=== PATIENT | female | born 1970 ===

== ENCOUNTER 2017-02-02 03:12 | Inpatient (IN) | payer OTHER ==
[2017-02-02] MEDS ORDERED: Sodium Chloride 0.9% 1,000 ML IV STA ×3 (03:40→11:41)
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
[2017-02-02 04:10] LABS: BASO % 0.2 % (0.0-2.0); EOS # 0.1 K/uL (0.0-0.7); EOS % 0.4 % (0.0-4.0); HEMATOCRIT 36.6 % (34.0-47.0); LYMPH # 1.2 K/uL (1.0-4.3); LYMPH % 8.3 % (20.0-40.0); MEAN CELL VOLUME 85.7 fl (81.0-99.0); MEAN CORPUSCULAR HEMOGLOBIN 29.4 pg (27.0-31.0); MEAN CORPUSCULAR HGB CONC 34.3 g/dL (33.0-37.0); MEAN PLATELET VOLUME 8.6 fl (7.2-11.7); MONO # 0.9 K/uL (0.0-0.8); NEUT # 12.2 K/uL (1.8-7.0); NEUT % 85.1 % (50.0-75.0); PLATELET COUNT 195 K/uL (130-400); RED CELL DISTRIBUTION WIDTH 13.3 % (11.5-14.5); WHITE BLOOD COUNT 14.3 K/uL (4.8-10.8)
[2017-02-02 04:15] LABS: CHLORIDE 107 mmol/L (98-107); POTASSIUM 3.4 MMOL/L (3.6-5.0); SODIUM 138 mmol/l (132-148)
[2017-02-02 04:17] LABS: VENOUS BLOOD GAS BASE EXCESS -5.5 mmol/L (0.0-2.0); VENOUS BLOOD GAS MODE ROOM AIR; VENOUS BLOOD GAS PCO2 42 mmHg (40-60)
[2017-02-02 04:17] LABS: GFR AFRICAN-AMERICAN > 60
[2017-02-02 04:18] LABS: ALB/GLOB RATIO 1.1 (1.0-2.1); ALKALINE PHOSPHATASE 76 U/L (38-126); ALT/SGPT 32 U/L (9-52); AST/SGOT 24 U/L (14-36); BLOOD UREA NITROGEN 10 mg/dl (7-17); CALCIUM 9.5 mg/dL (8.4-10.2); CARBON DIOXIDE 22 mmol/L (22-30); GLUCOSE,RANDOM 112 mg/dL (65-105); LIPASE 147 U/L (23-300); TOTAL PROTEIN 7.6 G/DL (6.3-8.2)
[2017-02-02] MEDS ORDERED: Iohexol 240 (50 ml) PO ONE (04:40)
[2017-02-02] MEDS ORDERED: DiphenhydrAMINE 50 mg/ml Inj IVP STA (04:50)
[2017-02-02] MEDS ORDERED: Iohexol 240 (50 ml) ONE (04:53)
[2017-02-02 04:54] LABS: RBC URINE 1 /hpf (0-3); URINE BACTERIA RARE (<OCC); URINE BILIRUBIN NEGATIVE (NEGATIVE); URINE BLOOD NEGATIVE (NEGATIVE); URINE COLOR BLUE (YELLOW); URINE GLUCOSE (UA) NEG (Normal); URINE KETONE TRACE mg/dL (NEGATIVE); URINE LEUKOCYTE ESTERASE NEG Leu/uL (Negative); URINE PROTEIN NEGATIVE (NEGATIVE); WBC URINE 1 /hpf (0-5)
[2017-02-02] MEDS ORDERED: DiphenhydrAMINE 50 mg/ml Inj ONE (04:58)
--- NOTE | 2017-02-02 06:06 | ED PDOC ---
- Laboratory Results Result Diagrams: 02/02/17 04:06 02/02/17 04:06 - ECG O2 Sat by Pulse Oximetry: 100 (RA) Pulse Ox Interpretation: Normal Medical Decision Making Medical Decision Making: Time: 0600 Initial impression: Flu-Like Symptoms Initial plan: Patient signed out to me by Baldev Espinal PA-C. Pending CT Scan. 0700: Patient signed out to Dr. Toribio at this time. Pending CT Scan. Scribe Attestation: Documented by Alicia Bryant, acting as a scribe for Mk York MD. Scribe Attestation: All medical record entries made by the Scribe were at my direction and personally dictated by me. I have reviewed the chart and agree that the record accurately reflects my personal performance of the history, physical exam, medical decision making, and the department course for this patient. I have also personally directed, reviewed, and agree with the discharge instructions and disposition. Disposition - Clinical Impression Clinical Impression: Fever in adult, Abdominal pain - POA Present On Arrival: None - Disposition Disposition: Routine/Home Disposition Time: 04:40 Condition: FAIR
[2017-02-02 07:23] LABS: EOSINOPHIL 1 % (0-7); NEUTROPHIL 79 % (42-75); REACTIVE LYMPHOCYTES 2 % (0-0); TOTAL CELLS COUNTED 100
--- NOTE | 2017-02-02 09:27 | CT ---
PROCEDURE: CT abdomen and pelvis dated 02/02/2017 HISTORY: RLQ, epigastric pain, fever COMPARISON: Comparison made with CT scan abdomen and pelvis dated 08/17/2015. TECHNIQUE: Contiguous axial images of the abdomen and pelvis. Oral contrast was administered. No IV contrast given. 2 dimensional sagittal and coronal reformats generated. Radiation dose: Total exam DLP = 468.66 mGy-cm. This CT exam was performed using one or more of the following dose reduction techniques: Automated exposure control, adjustment of the mA and/or kV according to patient size, and/or use of iterative reconstruction technique. FINDINGS: LOWER THORAX: Patchy infiltrate changes are seen in the left lower lobe with atelectasis in the right lung base. . No evidence of effusion or basilar pneumothorax. Small hiatal hernia with slight wall thickening of the distal esophagus that could be due to protrusion of gastric mucosa. Possibility of esophagitis or other intrinsic/invasive wall lesion not excluded. Clinical correlation recommended to determine whether additional followup such is a endoscopy required. Heart size is mildly enlarged. No significant pericardial effusion. LIVER: The unenhanced liver exhibits normal size and attenuation pattern without mass collection or calcification. GALLBLADDER AND BILE DUCTS: Gallbladder is physiologically distended. No evidence of intraluminal gallbladder calculi. PANCREAS: The unenhanced pancreas appear grossly unremarkable without obvious mass collection or calcification. SPLEEN: Spleen exhibits normal size and attenuation pattern without mass collection or calcification. ADRENALS: No adrenal lesions seen. KIDNEYS AND URETERS: Kidneys demonstrate relatively symmetric size. No evidence of nephrolithiasis or hydronephrosis. No obvious renal mass or collection seen on this noncontrast study. BLADDER: Urinary bladder is physiologically distended. No evidence of intraluminal urinary bladder calculi. REPRODUCTIVE: Patient is status post hysterectomy. APPENDIX: Partially air and contrast filled normal-appearing appendix of best seen on axial image number [id number] and coronal image number [id number] BOWEL: Evaluation of the bowel is limited due to incomplete opacification. The stomach is under opacified and underdistended which presumably accounts for slight thick-walled appearance. Possibility of gastritis or other intrinsic/invasive wall lesion not excluded. Visualized loops of small bowel exhibit normal contour and caliber. No evidence acute mechanical small bowel obstruction with oral contrast material extending into the colon to the level of the distal descending/ proximal sigmoid colon. No definitive mural wall thickening seen. PERITONEUM: Unremarkable. No fluid collection. No free air. Small fat containing umbilical hernia. LYMPH NODES: Unremarkable. No enlarged lymph nodes. VASCULATURE: Unremarkable. No aortic aneurysm. BONES: No evidence of acute compression fractures nor pulse fragments us seen within the visualized lower thoracic or lumbar spine. Vertebral bodies exhibit normal stature and alignment. Facets normally aligned. OTHER FINDINGS: None. IMPRESSION: Patchy infiltrate changes are seen within the left lung base of with mild right basilar atelectasis. No evidence of acute appendicitis. No evidence of nephrolithiasis or hydronephrosis. No evidence of cholelithiasis. Small hiatal hernia with mild wall thickening of the distal esophagus which could be due to protrusion of gastric mucosa. Esophagitis or other intrinsic/invasive wall lesion not excluded. Followup endoscopy could be performed further evaluation if clinically indicated See above discussion additional details, findings and recommendations.
--- NOTE | 2017-02-02 10:09 | RAD ---
HISTORY: cough COMPARISON: Comparison chest dated 11/30/2015 TECHNIQUE: Chest PA and lateral FINDINGS: LUNGS: Poor inspiration with low lung volumes, crowded bronchovascular markings and mild bibasilar atelectasis. PLEURA: No significant pleural effusion identified. No pneumothorax apparent. CARDIOVASCULAR: Heart size is upper limits of normal however this is likely due to poor inspiration with low lung volumes and probably AP patient positioning. . OSSEOUS STRUCTURES: No significant abnormalities. VISUALIZED UPPER ABDOMEN: Normal. OTHER FINDINGS: None. IMPRESSION: Poor inspiration with low the lung volumes, crowded bronchovascular markings and mild bibasilar atelectasis.
[2017-02-02] MEDS ORDERED: levoFLOXacin 750 mg in D5W 150 ML BAG IVPB STA (11:41)
[2017-02-02] MEDS ORDERED: levoFLOXacin 750 mg in D5W 750 MG/150 ML BAG IVPB ONE ×2 (11:46→12:00)
[2017-02-02] MEDS ORDERED: levoFLOXacin 750 mg in D5W 750 MG/150 ML BAG IVPB SCH (14:15)
[2017-02-02] MEDS ORDERED: Albuterol HFA 90 mcg/actuation (8 g) IH PRN (14:28)
[2017-02-02] MEDS ORDERED: Albuterol HFA 90 mcg/actuation (8 g) IH SCH (14:30)
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
[2017-02-02 15:51] VITALS: BMI 25.8
[2017-02-02] MEDS: Sodium Chloride 0.9% 1,000 ML IV SCH (16:00)
--- NOTE | 2017-02-02 17:21 | CT ---
PROCEDURE: CT Chest without contrast HISTORY: pneumonia COMPARISON: Plain radiographs performed the same day. TECHNIQUE: Contiguous axial images were obtained through the chest without intravenous contrast enhancement. Sagittal and coronal reconstructions were performed. Radiation dose (DLP): 222.50 mGy-cm. This CT exam was performed using one or more of the following dose reduction techniques: Automated exposure control, adjustment of the mA and/or kV according to patient size, and/or use of iterative reconstruction technique. FINDINGS: LUNGS: There is confluent airspace disease in the left lower lobe. There is subsegmental atelectasis in the right lung. There are no endobronchial lesions. MEDIASTINUM: The aorta is not dilated. The heart is normal in size. There is no pericardial effusion. There is no pathologic lymphadenopathy. PLEURA: No pleural fluid. No pneumothorax. BONES: No fracture. No destructive lesion. UPPER ABDOMEN: Grossly unremarkable. OTHER FINDINGS: None. IMPRESSION: Left lower lobe pneumonia. Follow-up after medical management is recommended to ensure complete resolution.
[2017-02-02] MEDS: metroNIDAZOLE 500mg/100ml NS 100 ML IVPB SCH (18:24)
--- NOTE | 2017-02-02 23:54 | CP.PCM.HP ---
History of Present Illness - History of Present Illness History of Present Illness: A 47 yr old female with hx of HTN , GERD on meds recently went to [facility] with c\o having diarrhea 10-15 times for 1 week with nausea was diagnosed with amebiasis , been on meds still has have persistent along with abdominal cramps, high fever for2-3 days with cough and cold symptoms for last 2-3 days. diarrhea is watery with mucus,denies blood Present on Admission - Present on Admission Any Indicators Present on Admission: No Review of Systems - Constitutional Constitutional: Anorexia, Chills, Fever, Lethargy. absent: Weight Loss - EENT Nose/Mouth/Throat: Nasal Congestion. absent: Sinus Pain, Sore Throat - Cardiovascular Cardiovascular: Chest Pain, Dyspnea. absent: Diaphoresis, Edema, Leg Edema, Lightheadedness - Respiratory Respiratory: Cough, Change in Mucous Color. absent: Hemoptysis, Wheezing - Gastrointestinal Gastrointestinal: Dyspepsia. absent: Hematochezia, Vomiting - Genitourinary Genitourinary: absent: Urinary Frequency - Musculoskeletal Musculoskeletal: Arthralgias. absent: Limited Range of Motion, Stiffness - Neurological Neurological: absent: Behavioral Changes, Paresthesias, Vertigo - Hematologic/Lymphatic Hematologic: absent: Easy Bleeding, Easy Bruising, Lymphadenopathy Past Patient History - Past Medical History & Family History Past Medical History?: Yes - Past Social History Smoking Status: Never Smoked - CARDIAC Hx Cardiac Disorders: Yes Hx Atrial Fibrillation: Yes Hx Hypertension: Yes - PULMONARY Hx Respiratory Disorders: Yes Hx Asthma: Yes - NEUROLOGICAL Hx Neurological Disorder: No - HEENT Hx HEENT Problems: No - RENAL Hx Chronic Kidney Disease: No - ENDOCRINE/METABOLIC Hx Endocrine Disorders: No - HEMATOLOGICAL/ONCOLOGICAL Hx Blood Disorders: No Hx AIDS: No Hx Human Immunodeficiency Virus (HIV): No - INTEGUMENTARY Hx Dermatological Problems: No - MUSCULOSKELETAL/RHEUMATOLOGICAL Hx Musculoskeletal Disorders: No Hx Falls: No - GASTROINTESTINAL Hx Gastrointestinal Disorders: Yes Hx Pancreatitis: Yes - GENITOURINARY/GYNECOLOGICAL Hx Genitourinary Disorders: No - PSYCHIATRIC Hx Psychophysiologic Disorder: Yes Hx Anxiety: Yes Hx Depression: Yes Hx Schizophrenia: No Hx Substance Use: No - SURGICAL HISTORY Hx Surgeries: Yes Hx Cardiac Catheterization: Yes Hx Hysterectomy: Yes (1999) Other/Comment: TYMPANIC MEMBRANE SX. - ANESTHESIA Hx Anesthesia: Yes Hx Anesthesia Reactions: No Hx Malignant Hyperthermia: No Meds Allergies/Adverse Reactions: Allergies Allergy/AdvReac Type Severity Reaction Status Date / Time latex Allergy Mild RASH Verified 02/02/17 03:29 iodine Allergy RASH Verified 11/30/15 11:14 shrimp Allergy RASH Verified 11/30/15 11:14 Physical Exam - Constitutional Appears: No Acute Distress - Head Exam Head Exam: ATRAUMATIC, NORMAL INSPECTION, NORMOCEPHALIC - Eye Exam Eye Exam: EOMI, Normal appearance, PERRL. absent: Scleral icterus - ENT Exam ENT Exam: Mucous Membranes Dry, Normal Exam - Neck Exam Neck exam: Negative for: Lymphadenopathy, Thyromegaly - Respiratory Exam Respiratory Exam: Clear to Auscultation Bilateral, NORMAL BREATHING PATTERN. absent: Rhonchi, Wheezes, Respiratory Distress - Cardiovascular Exam Cardiovascular Exam: REGULAR RHYTHM, +S1, +S2. absent: Systolic Murmur - GI/Abdominal Exam GI & Abdominal Exam: Normal Bowel Sounds, Soft. absent: Distended, Hernia, Tenderness - Extremities Exam Extremities exam: Positive for: normal inspection, pedal pulses present. Negative for: pedal edema, tenderness - Back Exam Back exam: NORMAL INSPECTION. absent: tenderness - Neurological Exam Neurological exam: Alert, CN II-XII Intact, Normal Gait, Oriented x3 - Psychiatric Exam Psychiatric exam: Normal Affect, Normal Mood - Skin Skin Exam: Intact, Normal Color Results - Vital Signs Recent Vital Signs: Last Vital Signs Temp 98.6 F 02/02/17 19:51 Pulse 60 02/02/17 19:51 Resp 16 02/02/17 19:51 BP 126/83 02/02/17 19:51 Pulse Ox 100 02/02/17 19:51 - Labs Result Diagrams: 02/04/17 10:00 02/02/17 04:06 Labs: Laboratory Results - last 24 hr 02/02/17 02/02/17 02/02/17 14:46 15:34 15:34 Lactic Acid 1.0 C. difficile Ag & Toxin Hepatitis A IgM Ab Negative Hep Bs Antigen Negative Hep B Core IgM Ab Negative Hepatitis C Antibody Negative HIV 1&2 Antibody Screen Negative Influenza Typ A,B (EIA) 02/02/17 02/02/17 17:25 18:16 Lactic Acid C. difficile Ag & Toxin Negative Hepatitis A IgM Ab Hep Bs Antigen Hep B Core IgM Ab Hepatitis C Antibody HIV 1&2 Antibody Screen Influenza Typ A,B (EIA) Negative for flu a/b - EKG Data EKG Interpreted by: Myself EKG shows normal: Sinus rhythm Rate: Bradycardia - Imaging and Cardiology Chest x-ray Status: Report reviewed by me CT scan - abdomen Status: Report reviewed by me Assessment & Plan (1) Enteritis Status: Acute Comment: likley amoebic. stool work up. ivf. iv falgyl. iv levaquin. ID consult (2) Viral syndrome Assessment and Plan: r\o pneumonia ct chest iv levaquin tyelenol for fever Status: Acute (3) Nausea Assessment and Plan: zofran Status: Acute (4) Essential (primary) hypertension Assessment and Plan: resume meds f\u closely Status: Acute (5) Chest pain Assessment and Plan: likley due to pneumonia\myalgia trops Status: Acute Decision To Admit - Pt Status Changed To: Hospital Disposition Of: Inpatient - Admit Certification Admit to Inpatient:: After my assessment, the patient will require hospitalization for at least two midnights. This is because of the severity of symptoms shown, intensity of services needed, and/or the medical risk in this patient being treated as an outpatient. - . Bed Request Type: Telemetry Admitting Physician: Veena Barger
[2017-02-03] MEDS: metroNIDAZOLE 500mg/100ml NS 100 ML IVPB SCH ×3 (00:54→16:58)
[2017-02-03] MEDS: Sodium Chloride 0.9% 1,000 ML IV SCH ×2 (00:54→10:15)
[2017-02-03 10:30] LABS: HEMATOCRIT 34.2 % (34.0-47.0); MEAN CELL VOLUME 89.2 fl (81.0-99.0); MEAN CORPUSCULAR HEMOGLOBIN 30.2 pg (27.0-31.0); MEAN CORPUSCULAR HGB CONC 33.9 g/dL (33.0-37.0); RED CELL DISTRIBUTION WIDTH 13.5 % (11.5-14.5); WHITE BLOOD COUNT 8.6 K/uL (4.8-10.8)
[2017-02-03] MEDS: Potassium Chloride 20 mEq ER Tab PO SCH ×2 (12:02→16:58)
[2017-02-03] MEDS: guaiFENesin DM 200 mg-20 mg/10 ml UD PO PRN ×2 (13:24→22:09)
[2017-02-03] MEDS: levoFLOXacin 750 mg in D5W 750 MG/150 ML BAG IVPB SCH (14:30)
[2017-02-03] MEDS: Sodium Chloride 0.45% 1,000 ML IV SCH (18:22)
[2017-02-03] MEDS: Alum-Mag Hydrox-Simethicone Susp (30 mL) PO PRN (22:02)
[2017-02-04] MEDS: metroNIDAZOLE 500mg/100ml NS 100 ML IVPB SCH ×3 (00:43→16:12)
[2017-02-04] MEDS: Sodium Chloride 0.45% 1,000 ML IV SCH ×2 (03:50→13:17)
[2017-02-04] MEDS: Alum-Mag Hydrox-Simethicone Susp (30 mL) PO PRN (08:21)
--- NOTE | 2017-02-04 08:44 | CARD ---
APPROVED REPORT EKG Measurement Heart [id number] <Conclusion> Sinus bradycardia Low voltage QRS Septal infarct, age undetermined Abnormal ECG
[2017-02-04] MEDS ORDERED: Patient's Own Med (Valsartan/Hydrochlorothiazide [Diovan Hct 160-25 Mg Tablet] 1 TAB) PO SCH (09:00)
[2017-02-04] MEDS: Potassium Chloride 20 mEq ER Tab PO SCH (09:05)
[2017-02-04] MEDS: guaiFENesin DM 200 mg-20 mg/10 ml UD PO PRN (09:06)
[2017-02-04] MEDS: levoFLOXacin 750 mg in D5W 750 MG/150 ML BAG IVPB SCH (09:06)
[2017-02-04 10:55] LABS: BASO # 0.1 K/uL (0.0-0.2); BASO % 0.6 % (0.0-2.0); EOS # 0.2 K/uL (0.0-0.7); EOS % 2.7 % (0.0-4.0); HEMATOCRIT 34.4 % (34.0-47.0); LYMPH # 1.6 K/uL (1.0-4.3); LYMPH % 20.5 % (20.0-40.0); MEAN CELL VOLUME 89.4 fl (81.0-99.0); MEAN CORPUSCULAR HEMOGLOBIN 29.5 pg (27.0-31.0); MEAN PLATELET VOLUME 9.5 fl (7.2-11.7); MONO # 0.8 K/uL (0.0-0.8); MONO % 10.1 % (0.0-10.0); NEUT # 5.3 K/uL (1.8-7.0); NEUT % 66.1 % (50.0-75.0); RED CELL DISTRIBUTION WIDTH 13.4 % (11.5-14.5)
--- NOTE | 2017-02-04 11:10 | CP.PCM.PN ---
Subjective - Date & Time of Evaluation Date of Evaluation: 02/03/17 Time of Evaluation: 11:00 - Subjective Subjective: diarrhea is 4-5 times\day,still mucusy ctchest -LLL pneumonia k-3.4, on IVF, tele monitor- bradycardia Objective - Vital Signs/Intake and Output Vital Signs (last 24 hours): Temp Pulse Resp BP Pulse Ox 98.4 F 72 18 120/79 100 02/04/17 08:07 02/04/17 09:00 02/04/17 08:07 02/04/17 08:07 02/04/17 08:07 - Medications Medications: Current Medications Acetaminophen (Tylenol 325mg Tab) 650 mg PO Q6 PRN PRN Reason: Fever >100.4 F Last Admin: 02/03/17 12:01 Dose: 650 mg Acetaminophen (Tylenol 325mg Tab) 650 mg PO Q6 PRN PRN Reason: pain Last Admin: 02/04/17 10:22 Dose: 650 mg Al Hydrox/Mg Hydrox/Simethicone (Maalox Plus 30 Ml) 30 ml PO Q12 PRN PRN Reason: Indigestion / Heartburn Last Admin: 02/04/17 08:21 Dose: 30 ml Albuterol (Ventolin Hfa 90 Mcg/Actuation (8 G)) 2 puff IH Q4H PRN PRN Reason: Shortness of Breath Clonazepam (Klonopin) 1 mg PO HS [facility] Last Admin: 02/03/17 22:04 Dose: 1 mg Clopidogrel Bisulfate (Plavix) 75 mg PO DAILY [facility] Last Admin: 02/04/17 09:06 Dose: 75 mg Guaifenesin/Dextromethorphan (Robitussin Dm) 10 ml PO Q6 PRN PRN Reason: Cough Last Admin: 02/04/17 09:06 Dose: 10 ml Hydrochlorothiazide (Hydrodiuril) 25 mg PO DAILY [facility] Last Admin: 02/04/17 09:05 Dose: 25 mg Levofloxacin/Dextrose (Levaquin 750mg) 750 mg in 150 mls @ 100 mls/hr IVPB DAILY [facility] Last Admin: 02/04/17 09:06 Dose: 100 mls/hr Metronidazole (Flagyl 500mg/100ml Ns) 100 mls @ 100 mls/hr IVPB Q8 [facility] Last Admin: 02/04/17 08:20 Dose: 100 mls/hr Sodium Chloride (Sodium Chloride 0.45%) 1,000 mls @ 100 mls/hr IV .Q10H [facility] Stop: 02/04/17 17:41 Last Admin: 02/04/17 03:50 Dose: 100 mls/hr Montelukast Sodium (Singulair) 10 mg PO HS [facility] Last Admin: 02/03/17 22:02 Dose: 10 mg Ondansetron HCl (Zofran Inj) 4 mg IVP Q6 PRN PRN Reason: Nausea/Vomiting Last Admin: 02/02/17 21:47 Dose: 4 mg Potassium Chloride (K-Dur 20 Meq Er Tab) 20 meq PO DAILY [facility] Last Admin: 02/04/17 09:05 Dose: 20 meq Sertraline HCl (Zoloft) 150 mg PO [facility] Last Admin: 02/03/17 22:02 Dose: 150 mg Trazodone HCl (Desyrel) 100 mg PO [facility] Last Admin: 02/03/17 22:02 Dose: 100 mg Valsartan (Diovan) 160 mg PO DAILY [facility] Last Admin: 02/04/17 09:05 Dose: 160 mg - Labs Labs: 02/04/17 10:00 - Additional Findings Additional findings: - Constitutional Appears: No Acute Distress - Head Exam Head Exam: ATRAUMATIC, NORMAL INSPECTION, NORMOCEPHALIC - Eye Exam Eye Exam: EOMI, Normal appearance, PERRL. absent: Scleral icterus - ENT Exam ENT Exam: Mucous Membranes Dry, Normal Exam - Neck Exam Neck exam: Negative for: Lymphadenopathy, Thyromegaly - Respiratory Exam Respiratory Exam: Clear to Auscultation Bilateral, NORMAL BREATHING PATTERN. absent: Rhonchi, Wheezes, Respiratory Distress - Cardiovascular Exam Cardiovascular Exam: REGULAR RHYTHM, +S1, +S2. absent: Systolic Murmur - GI/Abdominal Exam GI & Abdominal Exam: Normal Bowel Sounds, Soft. absent: Distended, Hernia, Tenderness - Extremities Exam Extremities exam: Positive for: normal inspection, pedal pulses present. Negative for: pedal edema, tenderness - Back Exam Back exam: NORMAL INSPECTION. absent: tenderness - Neurological Exam Neurological exam: Alert, CN II-XII Intact, Normal Gait, Oriented x3 - Psychiatric Exam Psychiatric exam: Normal Affect, Normal Mood - Skin Assessment and Plan (1) Pneumonia Status: Acute (2) Hypokalemia Status: Acute (3) Chest pain Status: Resolved (4) Enteritis Status: Acute (5) Essential (primary) hypertension Status: Acute - Assessment and Plan (Free Text) Plan: 1. continue ivf f\u c\s continue abx 2. continue levquin 3. k replace 4. bradycardia-sinus trops negative f\u 5. change ivf to 0.45 NS
[2017-02-04 11:21] LABS: BLOOD UREA NITROGEN 4 mg/dl (7-17); CALCIUM 9.1 mg/dL (8.4-10.2); CARBON DIOXIDE 20 mmol/L (22-30); CHLORIDE 110 mmol/L (98-107); GFR AFRICAN-AMERICAN > 60; GLUCOSE,RANDOM 91 mg/dL (65-105); POTASSIUM 4.6 MMOL/L (3.6-5.0); SODIUM 139 mmol/l (132-148)
[2017-02-04] MEDS ORDERED: Apap-Butalbital-Caffeine 325-50-40mg Tab PO PRN (13:23)
[2017-02-04] MEDS ORDERED: Sodium Chloride 3% for Inhalation 4 ML VIAL.NEB IH PRN (13:46)
--- NOTE | 2017-02-04 13:46 | CP.PCM.PN ---
Subjective - Date & Time of Evaluation Date of Evaluation: 02/04/17 Time of Evaluation: 06:00 - Subjective Subjective: still weak and bedridden serologies negative diarrhea persists belly soft will screen for legionella may need colonoscopy Objective - Vital Signs/Intake and Output Vital Signs (last 24 hours): Temp Pulse Resp BP Pulse Ox 98.4 F 65 18 120/78 97 02/04/17 12:02 02/04/17 12:02 02/04/17 12:02 02/04/17 12:02 02/04/17 12:02 - Medications Medications: Current Medications Acetaminophen (Tylenol 325mg Tab) 650 mg PO Q6 PRN PRN Reason: Fever >100.4 F Last Admin: 02/03/17 12:01 Dose: 650 mg Acetaminophen (Tylenol 325mg Tab) 650 mg PO Q6 PRN PRN Reason: pain Last Admin: 02/04/17 10:22 Dose: 650 mg Acetaminophen/Butalbital/Caffeine (Fioricet) 1 tab PO Q8 PRN PRN Reason: Headache Al Hydrox/Mg Hydrox/Simethicone (Maalox Plus 30 Ml) 30 ml PO Q12 PRN PRN Reason: Indigestion / Heartburn Last Admin: 02/04/17 08:21 Dose: 30 ml Albuterol (Ventolin Hfa 90 Mcg/Actuation (8 G)) 2 puff IH Q4H PRN PRN Reason: Shortness of Breath Clonazepam (Klonopin) 1 mg PO HS [facility] Last Admin: 02/03/17 22:04 Dose: 1 mg Clopidogrel Bisulfate (Plavix) 75 mg PO DAILY [facility] Last Admin: 02/04/17 09:06 Dose: 75 mg Guaifenesin/Dextromethorphan (Robitussin Dm) 10 ml PO Q6 PRN PRN Reason: Cough Last Admin: 02/04/17 09:06 Dose: 10 ml Hydrochlorothiazide (Hydrodiuril) 25 mg PO DAILY [facility] Last Admin: 02/04/17 09:05 Dose: 25 mg Levofloxacin/Dextrose (Levaquin 750mg) 750 mg in 150 mls @ 100 mls/hr IVPB DAILY [facility] Last Admin: 02/04/17 09:06 Dose: 100 mls/hr Metronidazole (Flagyl 500mg/100ml Ns) 100 mls @ 100 mls/hr IVPB Q8 [facility] Last Admin: 02/04/17 08:20 Dose: 100 mls/hr Sodium Chloride (Sodium Chloride 0.45%) 1,000 mls @ 100 mls/hr IV .Q10H [facility] Stop: 02/04/17 17:41 Last Admin: 02/04/17 13:17 Dose: 100 mls/hr Montelukast Sodium (Singulair) 10 mg PO HS [facility] Last Admin: 02/03/17 22:02 Dose: 10 mg Ondansetron HCl (Zofran Inj) 4 mg IVP Q6 PRN PRN Reason: Nausea/Vomiting Last Admin: 02/02/17 21:47 Dose: 4 mg Potassium Chloride (K-Dur 20 Meq Er Tab) 20 meq PO DAILY [facility] Last Admin: 02/04/17 09:05 Dose: 20 meq Sertraline HCl (Zoloft) [address] [facility] Last Admin: 02/03/17 22:02 Dose: 150 mg Trazodone HCl (Desyrel) [address] [facility] Last Admin: 02/03/17 22:02 Dose: 100 mg Valsartan (Diovan) 160 mg PO DAILY [facility] Last Admin: 02/04/17 09:05 Dose: 160 mg - Labs Labs: 02/04/17 10:00 02/04/17 10:00 - Constitutional Appears: Non-toxic, Chronically Ill - Head Exam Head Exam: NORMOCEPHALIC - Eye Exam Eye Exam: PERRL. absent: Scleral icterus - ENT Exam ENT Exam: Normal External Ear Exam - Neck Exam Neck Exam: absent: Lymphadenopathy - Respiratory Exam Respiratory Exam: Decreased Breath Sounds, Clear to Ausculation Bilateral - Cardiovascular Exam Cardiovascular Exam: REGULAR RHYTHM - GI/Abdominal Exam GI & Abdominal Exam: Distended, Soft. absent: Tenderness - Rectal Exam Rectal Exam: Deferred - Exam Exam: NORMAL INSPECTION - Extremities Exam Extremities Exam: absent: Pedal Edema - Back Exam Back Exam: absent: CVA tenderness (L), CVA tenderness (R) - Neurological Exam Neurological Exam: Alert, Awake, Oriented x3 - Psychiatric Exam Psychiatric exam: Normal Mood - Skin Skin Exam: Dry Assessment and Plan (1) Abdominal pain Status: Acute (2) Amebic enterocolitis Status: Acute (3) Essential (primary) hypertension Status: Acute (4) Fever in adult Status: Acute (5) Hypokalemia Status: Acute (6) Pneumonia Status: Acute (7) Chest pain Status: Resolved
--- NOTE | 2017-02-04 23:20 | CP.PCM.PN ---
Subjective - Date & Time of Evaluation Date of Evaluation: 02/04/17 Time of Evaluation: 10:00 - Subjective Subjective: feels tired, c\o dizziness, palpitations. labs reviewed Objective - Vital Signs/Intake and Output Vital Signs (last 24 hours): Temp Pulse Resp BP Pulse Ox 97.5 F L 55 L 18 126/86 97 02/04/17 20:09 02/04/17 20:09 02/04/17 20:09 02/04/17 20:09 02/04/17 20:09 Intake and Output: 02/04/17 02/05/17 18:59 06:59 Intake Total 1800 Balance 1800 - Medications Medications: Current Medications Acetaminophen (Tylenol 325mg Tab) 650 mg PO Q6 PRN PRN Reason: Fever >100.4 F Last Admin: 02/03/17 12:01 Dose: 650 mg Acetaminophen (Tylenol 325mg Tab) 650 mg PO Q6 PRN PRN Reason: pain Last Admin: 02/04/17 10:22 Dose: 650 mg Acetaminophen/Butalbital/Caffeine (Fioricet) 1 tab PO Q8 PRN PRN Reason: Headache Last Admin: 02/04/17 15:06 Dose: 1 tab Al Hydrox/Mg Hydrox/Simethicone (Maalox Plus 30 Ml) 30 ml PO Q12 PRN PRN Reason: Indigestion / Heartburn Last Admin: 02/04/17 08:21 Dose: 30 ml Albuterol (Ventolin Hfa 90 Mcg/Actuation (8 G)) 2 puff IH Q4H PRN PRN Reason: Shortness of Breath Clonazepam (Klonopin) 1 mg PO HS [facility] Last Admin: 02/04/17 21:16 Dose: 1 mg Clopidogrel Bisulfate (Plavix) 75 mg PO DAILY [facility] Last Admin: 02/04/17 09:06 Dose: 75 mg Guaifenesin/Dextromethorphan (Robitussin Dm) 10 ml PO Q6 PRN PRN Reason: Cough Last Admin: 02/04/17 09:06 Dose: 10 ml Hydrochlorothiazide (Hydrodiuril) 25 mg PO DAILY [facility] Last Admin: 02/04/17 09:05 Dose: 25 mg Levofloxacin/Dextrose (Levaquin 750mg) 750 mg in 150 mls @ 100 mls/hr IVPB DAILY [facility] Last Admin: 02/04/17 09:06 Dose: 100 mls/hr Metronidazole (Flagyl 500mg/100ml Ns) 100 mls @ 100 mls/hr IVPB Q8 [facility] Last Admin: 02/04/17 16:12 Dose: 100 mls/hr Montelukast Sodium (Singulair) 10 mg PO HS [facility] Last Admin: 02/04/17 21:12 Dose: 10 mg Ondansetron HCl (Zofran Inj) 4 mg IVP Q6 PRN PRN Reason: Nausea/Vomiting Last Admin: 02/02/17 21:47 Dose: 4 mg Potassium Chloride (K-Dur 20 Meq Er Tab) 20 meq PO DAILY [facility] Last Admin: 02/04/17 09:05 Dose: 20 meq Sertraline HCl (Zoloft) 150 mg PO [facility] Last Admin: 02/04/17 21:11 Dose: 150 mg Trazodone HCl (Desyrel) 100 mg PO HS [facility] Last Admin: 02/04/17 21:12 Dose: 100 mg Valsartan (Diovan) 160 mg PO DAILY [facility] Last Admin: 02/04/17 09:05 Dose: 160 mg - Labs Labs: 02/04/17 10:00 02/04/17 10:00 - Additional Findings Additional findings: Constitutional Appears: No Acute Distress - Head Exam Head Exam: ATRAUMATIC, NORMAL INSPECTION, NORMOCEPHALIC - Eye Exam Eye Exam: EOMI, Normal appearance, PERRL. absent: Scleral icterus - ENT Exam ENT Exam: Mucous Membranes Dry, Normal Exam - Neck Exam Neck exam: Negative for: Lymphadenopathy, Thyromegaly - Respiratory Exam Respiratory Exam: Clear to Auscultation Bilateral, NORMAL BREATHING PATTERN. absent: Rhonchi, Wheezes, Respiratory Distress - Cardiovascular Exam Cardiovascular Exam: REGULAR RHYTHM, +S1, +S2. absent: Systolic Murmur - GI/Abdominal Exam GI & Abdominal Exam: Normal Bowel Sounds, Soft. absent: Distended, Hernia, Tenderness - Extremities Exam Extremities exam: Positive for: normal inspection, pedal pulses present. Negative for: pedal edema, tenderness - Back Exam Back exam: NORMAL INSPECTION. absent: tenderness - Neurological Exam Neurological exam: Alert, CN II-XII Intact, Normal Gait, Oriented x3 - Psychiatric Exam Psychiatric exam: Normal Affect, Normal - Assessment and Plan (Free Text) Plan: 1. continue ivf f\u c\s continue abx 2. continue levquin 3. k replace 4. bradycardia-sinus trops negative f\u 5. change ivf to 0.45 NS Assessment and Plan (1) Pneumonia Status: Acute (2) Hypokalemia Status: Acute (3) Chest pain Status: Resolved (4) Enteritis Status: Acute (5) Essential (primary) hypertension Status: Acute - Assessment and Plan (Free Text) Plan: 1. continue ivf f\u c\s continue abx 2. continue levquin 3. k replace 4. bradycardia-sinus trops negative f\u 5. change ivf to 0.45 NS
[2017-02-05] MEDS: metroNIDAZOLE 500mg/100ml NS 100 ML IVPB SCH ×3 (01:03→17:05)
[2017-02-05 07:22] LABS: ALB/GLOB RATIO 1.1 (1.0-2.1); ALKALINE PHOSPHATASE 73 U/L (38-126); ALT/SGPT 39 U/L (9-52); AST/SGOT 24 U/L (14-36); BILIRUBIN,TOTAL 0.5 mg/dl (0.2-1.3); BLOOD UREA NITROGEN 6 mg/dl (7-17); CARBON DIOXIDE 22 mmol/L (22-30); CHLORIDE 105 mmol/L (98-107); GFR AFRICAN-AMERICAN > 60; GLUCOSE,RANDOM 96 mg/dL (65-105); POTASSIUM 4.2 MMOL/L (3.6-5.0); SODIUM 138 mmol/l (132-148); TOTAL PROTEIN 6.9 G/DL (6.3-8.2)
[2017-02-05] MEDS: Potassium Chloride 20 mEq ER Tab PO SCH (08:36)
[2017-02-05] MEDS: levoFLOXacin 750 mg in D5W 750 MG/150 ML BAG IVPB SCH (08:47)
[2017-02-05] MEDS: Alum-Mag Hydrox-Simethicone Susp (30 mL) PO PRN (08:58)
--- NOTE | 2017-02-05 11:19 | CP.PCM.PN ---
Subjective - Date & Time of Evaluation Date of Evaluation: 02/05/17 Time of Evaluation: 08:00 - Subjective Subjective: IMPROVING ON IV LEVAQUIN + SALMONELLA FROM STOOL SENS TO CIPRO CONT RX / CONTACT ISO Objective - Vital Signs/Intake and Output Vital Signs (last 24 hours): Temp Pulse Resp BP Pulse Ox 98.8 F 51 L 20 126/76 100 02/05/17 09:00 02/05/17 09:00 02/05/17 09:00 02/05/17 09:00 02/05/17 09:00 - Medications Medications: Current Medications Acetaminophen (Tylenol 325mg Tab) 650 mg PO Q6 PRN PRN Reason: Fever >100.4 F Last Admin: 02/03/17 12:01 Dose: 650 mg Acetaminophen (Tylenol 325mg Tab) 650 mg PO Q6 PRN PRN Reason: pain Last Admin: 02/04/17 10:22 Dose: 650 mg Acetaminophen/Butalbital/Caffeine (Fioricet) 1 tab PO Q8 PRN PRN Reason: Headache Last Admin: 02/04/17 15:06 Dose: 1 tab Al Hydrox/Mg Hydrox/Simethicone (Maalox Plus 30 Ml) 30 ml PO Q12 PRN PRN Reason: Indigestion / Heartburn Last Admin: 02/05/17 08:58 Dose: 30 ml Albuterol (Ventolin Hfa 90 Mcg/Actuation (8 G)) 2 puff IH Q4H PRN PRN Reason: Shortness of Breath Clonazepam (Klonopin) 1 mg PO HS [facility] Last Admin: 02/04/17 21:16 Dose: 1 mg Clopidogrel Bisulfate (Plavix) 75 mg PO DAILY [facility] Last Admin: 02/05/17 08:35 Dose: 75 mg Guaifenesin/Dextromethorphan (Robitussin Dm) 10 ml PO Q6 PRN PRN Reason: Cough Last Admin: 02/04/17 09:06 Dose: 10 ml Hydrochlorothiazide (Hydrodiuril) 25 mg PO DAILY [facility] Last Admin: 02/05/17 08:35 Dose: 25 mg Levofloxacin/Dextrose (Levaquin 750mg) 750 mg in 150 mls @ 100 mls/hr IVPB DAILY [facility] Last Admin: 02/05/17 08:47 Dose: 100 mls/hr Metronidazole (Flagyl 500mg/100ml Ns) 100 mls @ 100 mls/hr IVPB Q8 [facility] Last Admin: 02/05/17 08:37 Dose: 100 mls/hr Montelukast Sodium (Singulair) 10 mg PO [facility] Last Admin: 02/04/17 21:12 Dose: 10 mg Ondansetron HCl (Zofran Inj) 4 mg IVP Q6 PRN PRN Reason: Nausea/Vomiting Last Admin: 02/02/17 21:47 Dose: 4 mg Potassium Chloride (K-Dur 20 Meq Er Tab) 20 meq PO DAILY [facility] Last Admin: 02/05/17 08:36 Dose: 20 meq Sertraline HCl (Zoloft) 150 mg PO [facility] Last Admin: 02/04/17 21:11 Dose: 150 mg Trazodone HCl (Desyrel) 100 mg PO [facility] Last Admin: 02/04/17 21:12 Dose: 100 mg Valsartan (Diovan) 160 mg PO DAILY [facility] Last Admin: 02/05/17 08:36 Dose: 160 mg - Labs Labs: 02/04/17 10:00 02/05/17 06:01 - Constitutional Appears: Non-toxic, Chronically Ill - Head Exam Head Exam: NORMOCEPHALIC - Eye Exam Eye Exam: PERRL. absent: Scleral icterus - ENT Exam ENT Exam: Mucous Membranes Dry - Neck Exam Neck Exam: absent: Lymphadenopathy - Respiratory Exam Respiratory Exam: Decreased Breath Sounds - Cardiovascular Exam Cardiovascular Exam: REGULAR RHYTHM - GI/Abdominal Exam GI & Abdominal Exam: Distended, Soft - Rectal Exam Rectal Exam: Deferred - Exam Exam: NORMAL INSPECTION - Extremities Exam Extremities Exam: absent: Pedal Edema - Back Exam Back Exam: absent: CVA tenderness (L), CVA tenderness (R) Assessment and Plan (1) Abdominal pain Status: Acute (2) Amebic enterocolitis Status: Acute (3) Essential (primary) hypertension Status: Acute (4) Fever in adult Status: Acute (5) Hypokalemia Status: Acute (6) Pneumonia Status: Acute (7) Chest pain Status: Resolved (8) Salmonellosis Status: Acute (9) Salmonellosis Status: Acute
[2017-02-05] MEDS: Dextrose 5%/0.9% NS 1,000 ML IV SCH (14:18)
--- NOTE | 2017-02-05 22:26 | CP.PCM.PN ---
Subjective - Date & Time of Evaluation Date of Evaluation: 02/05/17 Time of Evaluation: 15:00 - Subjective Subjective: stool grew salmonella, notes she has aches , feels dizziness. diarrhea is better labs reviwed. Objective - Vital Signs/Intake and Output Vital Signs (last 24 hours): Temp Pulse Resp BP Pulse Ox 98.1 F 66 20 126/82 98 02/05/17 19:37 02/05/17 19:37 02/05/17 19:37 02/05/17 19:37 02/05/17 19:37 Intake and Output: 02/05/17 02/06/17 18:59 06:59 Intake Total 1415 Balance 1415 - Medications Medications: Current Medications Acetaminophen (Tylenol 325mg Tab) 650 mg PO Q6 PRN PRN Reason: Fever >100.4 F Last Admin: 02/03/17 12:01 Dose: 650 mg Acetaminophen (Tylenol 325mg Tab) 650 mg PO Q6 PRN PRN Reason: pain Last Admin: 02/04/17 10:22 Dose: 650 mg Acetaminophen/Butalbital/Caffeine (Fioricet) 1 tab PO Q8 PRN PRN Reason: Headache Last Admin: 02/04/17 15:06 Dose: 1 tab Al Hydrox/Mg Hydrox/Simethicone (Maalox Plus 30 Ml) 30 ml PO Q12 PRN PRN Reason: Indigestion / Heartburn Last Admin: 02/05/17 08:58 Dose: 30 ml Albuterol (Ventolin Hfa 90 Mcg/Actuation (8 G)) 2 puff IH Q4H PRN PRN Reason: Shortness of Breath Clonazepam (Klonopin) 1 mg PO HS [facility] Last Admin: 02/05/17 21:41 Dose: 1 mg Clopidogrel Bisulfate (Plavix) 75 mg PO DAILY [facility] Last Admin: 02/05/17 08:35 Dose: 75 mg Guaifenesin/Dextromethorphan (Robitussin Dm) 10 ml PO Q6 PRN PRN Reason: Cough Last Admin: 02/04/17 09:06 Dose: 10 ml Hydrochlorothiazide (Hydrodiuril) 25 mg PO DAILY [facility] Last Admin: 02/05/17 08:35 Dose: 25 mg Levofloxacin/Dextrose (Levaquin 750mg) 750 mg in 150 mls @ 100 mls/hr IVPB DAILY [facility] Last Admin: 02/05/17 08:47 Dose: 100 mls/hr Metronidazole (Flagyl 500mg/100ml Ns) 100 mls @ 100 mls/hr IVPB Q8 [facility] Last Admin: 02/05/17 17:05 Dose: 100 mls/hr Dextrose/Sodium Chloride (Dextrose 5%/0.9% Ns 1000 Ml) 1,000 mls @ 75 mls/hr IV [id number] [facility] Stop: 02/06/17 13:18 Last Admin: 02/05/17 14:18 Dose: 75 mls/hr Montelukast Sodium (Singulair) 10 mg PO HS [facility] Last Admin: 02/05/17 21:41 Dose: 10 mg Ondansetron HCl (Zofran Inj) 4 mg IVP Q6 PRN PRN Reason: Nausea/Vomiting Last Admin: 02/02/17 21:47 Dose: 4 mg Potassium Chloride (K-Dur 20 Meq Er Tab) 20 meq PO DAILY [facility] Last Admin: 02/05/17 08:36 Dose: 20 meq Sertraline HCl (Zoloft) 150 mg PO [facility] Last Admin: 02/05/17 21:41 Dose: 150 mg Trazodone HCl (Desyrel) 100 mg PO [facility] Last Admin: 02/05/17 21:41 Dose: 100 mg Valsartan (Diovan) 160 mg PO DAILY [facility] Last Admin: 02/05/17 08:36 Dose: 160 mg - Labs Labs: 02/04/17 10:00 02/05/17 06:01 - Additional Findings Additional findings: Constitutional Appears: No Acute Distress - Head Exam Head Exam: ATRAUMATIC, NORMAL INSPECTION, NORMOCEPHALIC - Eye Exam Eye Exam: EOMI, Normal appearance, PERRL. absent: Scleral icterus - ENT Exam ENT Exam: Mucous Membranes Dry, Normal Exam - Neck Exam Neck exam: Negative for: Lymphadenopathy, Thyromegaly - Respiratory Exam Respiratory Exam: Clear to Auscultation Bilateral, NORMAL BREATHING PATTERN. absent: Rhonchi, Wheezes, Respiratory Distress - Cardiovascular Exam Cardiovascular Exam: REGULAR RHYTHM, +S1, +S2. absent: Systolic Murmur - GI/Abdominal Exam GI & Abdominal Exam: Normal Bowel Sounds, Soft. absent: Distended, Hernia, Tenderness - Extremities Exam Extremities exam: Positive for: normal inspection, pedal pulses present. Negative for: pedal edema, tenderness - Back Exam Back exam: NORMAL INSPECTION. absent: tenderness - Neurological Exam Neurological exam: Alert, CN II-XII Intact, Normal Gait, Oriented x3 - Psychiatric Exam Psychiatric exam: Normal Affect, Normal Mood - Skin normal. Assessment and Plan (1) Pneumonia Status: Acute (2) Hypokalemia Status: Acute (3) Chest pain Status: Resolved (4) Essential (primary) hypertension Status: Acute - Assessment and Plan (Free Text) Plan: 1. continue ivf f\u c\s continue abx 2. continue levquin 3. k replace 4. bradycardia-sinus trops negative f\u 5. change ivf to 0.45 NS 6. contact isolation report to [facility] ID aware
[2017-02-06] MEDS: metroNIDAZOLE 500mg/100ml NS 100 ML IVPB SCH ×3 (00:36→16:40)
[2017-02-06] MEDS: Dextrose 5%/0.9% NS 1,000 ML IV SCH (04:23)
[2017-02-06 06:59] LABS: BLOOD UREA NITROGEN 7 mg/dl (7-17); CALCIUM 8.9 mg/dL (8.4-10.2); CARBON DIOXIDE 22 mmol/L (22-30); CHLORIDE 107 mmol/L (98-107); GFR AFRICAN-AMERICAN > 60; GLUCOSE,RANDOM 105 mg/dL (65-105); POTASSIUM 4.2 MMOL/L (3.6-5.0); SODIUM 138 mmol/l (132-148)
[2017-02-06 07:01] LABS: HEMATOCRIT 38.2 % (34.0-47.0); MEAN CELL VOLUME 89.1 fl (81.0-99.0); MEAN CORPUSCULAR HEMOGLOBIN 29.2 pg (27.0-31.0); MEAN CORPUSCULAR HGB CONC 32.8 g/dL (33.0-37.0); RED CELL DISTRIBUTION WIDTH 13.7 % (11.5-14.5); WHITE BLOOD COUNT 5.9 K/uL (4.8-10.8)
[2017-02-06] MEDS: Potassium Chloride 20 mEq ER Tab PO SCH (08:42)
[2017-02-06] MEDS: guaiFENesin DM 200 mg-20 mg/10 ml UD PO PRN ×2 (08:43→16:41)
[2017-02-06] MEDS: levoFLOXacin 750 mg in D5W 750 MG/150 ML BAG IVPB SCH (08:48)
--- NOTE | 2017-02-06 11:04 | CP.PCM.PN ---
Subjective - Date & Time of Evaluation Date of Evaluation: 02/06/17 Time of Evaluation: 09:00 - Subjective Subjective: slow progress less diarrhea cont rx Objective - Vital Signs/Intake and Output Vital Signs (last 24 hours): Temp Pulse Resp BP Pulse Ox 98.1 F 62 18 120/76 99 02/06/17 08:16 02/06/17 08:16 02/06/17 08:16 02/06/17 08:16 02/06/17 08:16 - Medications Medications: Current Medications Acetaminophen (Tylenol 325mg Tab) 650 mg PO Q6 PRN PRN Reason: Fever >100.4 F Last Admin: 02/03/17 12:01 Dose: 650 mg Acetaminophen (Tylenol 325mg Tab) 650 mg PO Q6 PRN PRN Reason: pain Last Admin: 02/04/17 10:22 Dose: 650 mg Acetaminophen/Butalbital/Caffeine (Fioricet) 1 tab PO Q8 PRN PRN Reason: Headache Last Admin: 02/04/17 15:06 Dose: 1 tab Al Hydrox/Mg Hydrox/Simethicone (Maalox Plus 30 Ml) 30 ml PO Q12 PRN PRN Reason: Indigestion / Heartburn Last Admin: 02/05/17 08:58 Dose: 30 ml Albuterol (Ventolin Hfa 90 Mcg/Actuation (8 G)) 2 puff IH Q4H PRN PRN Reason: Shortness of Breath Clonazepam (Klonopin) 1 mg PO HS [facility] Last Admin: 02/05/17 21:41 Dose: 1 mg Clopidogrel Bisulfate (Plavix) 75 mg PO DAILY [facility] Last Admin: 02/06/17 08:44 Dose: 75 mg Guaifenesin/Dextromethorphan (Robitussin Dm) 10 ml PO Q6 PRN PRN Reason: Cough Last Admin: 02/06/17 08:43 Dose: 10 ml Hydrochlorothiazide (Hydrodiuril) 25 mg PO DAILY [facility] Last Admin: 02/06/17 08:43 Dose: 25 mg Levofloxacin/Dextrose (Levaquin 750mg) 750 mg in 150 mls @ 100 mls/hr IVPB DAILY [facility] Last Admin: 02/06/17 08:48 Dose: 100 mls/hr Metronidazole (Flagyl 500mg/100ml Ns) 100 mls @ 100 mls/hr IVPB Q8 [facility] Last Admin: 02/06/17 08:44 Dose: 100 mls/hr Dextrose/Sodium Chloride (Dextrose 5%/0.9% Ns 1000 Ml) 1,000 mls @ 75 mls/hr IV .[id number] [facility] Stop: 02/06/17 13:18 Last Admin: 02/06/17 04:23 Dose: 75 mls/hr Montelukast Sodium (Singulair) 10 mg PO HS [facility] Last Admin: 02/05/17 21:41 Dose: 10 mg Ondansetron HCl (Zofran Inj) 4 mg IVP Q6 PRN PRN Reason: Nausea/Vomiting Last Admin: 02/02/17 21:47 Dose: 4 mg Potassium Chloride (K-Dur 20 Meq Er Tab) 20 meq PO DAILY [facility] Last Admin: 02/06/17 08:42 Dose: 20 meq Sertraline HCl (Zoloft) 150 mg PO [facility] Last Admin: 02/05/17 21:41 Dose: 150 mg Trazodone HCl (Desyrel) 100 mg PO [facility] Last Admin: 02/05/17 21:41 Dose: 100 mg Valsartan (Diovan) 160 mg PO DAILY [facility] Last Admin: 02/06/17 08:42 Dose: 160 mg - Labs Labs: 02/06/17 06:20 02/06/17 06:20 - Constitutional Appears: Non-toxic, Chronically Ill - Head Exam Head Exam: NORMOCEPHALIC - Eye Exam Eye Exam: PERRL. absent: Scleral icterus - ENT Exam ENT Exam: Mucous Membranes Dry, Normal External Ear Exam - Neck Exam Neck Exam: absent: Lymphadenopathy - Respiratory Exam Respiratory Exam: Decreased Breath Sounds, Clear to Ausculation Bilateral - Cardiovascular Exam Cardiovascular Exam: REGULAR RHYTHM, +S1, +S2 - GI/Abdominal Exam GI & Abdominal Exam: Soft. absent: Tenderness - Rectal Exam Rectal Exam: Deferred Assessment and Plan (1) Abdominal pain Status: Acute (2) Amebic enterocolitis Status: Acute (3) Essential (primary) hypertension Status: Acute (4) Fever in adult Status: Acute (5) Hypokalemia Status: Acute (6) Pneumonia Status: Acute (7) Chest pain Status: Resolved (8) Salmonellosis Status: Acute (9) Salmonellosis Status: Acute
--- NOTE | 2017-02-06 12:28 | RAD ---
HISTORY: f/u pna COMPARISON: 02/02/2017 TECHNIQUE: Chest PA and lateral FINDINGS: LUNGS: Left lower lobe opacity. Small left pleural effusion. No right-sided opacity. PLEURA: Small left pleural effusion. No pneumothorax. CARDIOVASCULAR: Normal. OSSEOUS STRUCTURES: No significant abnormalities. VISUALIZED UPPER ABDOMEN: Normal. OTHER FINDINGS: None. IMPRESSION: Left lower lobe infiltrate. Small left pleural effusion.
--- NOTE | 2017-02-06 16:38 | CARD ---
APPROVED REPORT EXAM: Two-dimensional and M-mode echocardiogram with Doppler and color Doppler. Other Information Quality : GoodRhythm : NSR INDICATION Abnormal EKG/Arrhythmia 2D DIMENSIONS IVSd0.88 (0.7-1.1cm)LVDd4.37 (3.9-5.9cm) LVOT Diameter2.09 (1.8-2.4cm)PWd1.06 (0.7-1.1cm) IVSs1.38 (0.8-1.2cm)LVDs2.96 (2.5-4.0cm) FS (%) 32.1 %PWs1.44 (0.8-1.2cm) LVEF (%)45.0 (>50%) M-Mode DIMENSIONS Left Atrium (MM)3.45 (2.5-4.0cm)IVSd0.94 (0.7-1.1cm) Aortic Root2.87 (2.2-3.7cm)LVDd4.91 (4.0-5.6cm) Aortic Cusp Exc.2.07 (1.5-2.0cm)PWd0.83 (0.7-1.1cm) IVSs1.24 cmFS (%) 39 % LVDs3.01 (2.0-3.8cm)PWs1.41 cm Mitral Valve MV E Rfhouzjb45.0cm/sMV DECEL [id number] A Kgdkqocn21.7cm/s MV [id number]/A ratio0.8MVA (PHT)1.90cm2 TDI Lateral E' Peak V9.70cm/sMedial E' Peak V7.58cm/sE/Lateral E'4.5 E/Medial E'5.8 Pulmonary Valve PV Peak Isphmooi07.6cm/s LEFT VENTRICLE The left ventricle is normal size. There is normal left ventricular wall thickness. The systolic function is mildly impaired. Septal hypokinesis Transmitral Doppler flow pattern is Grade I-abnormal relaxation pattern. RIGHT VENTRICLE The right ventricle is normal size. There is normal right ventricular wall thickness. The right ventricular systolic function is normal. ATRIA The left atrium size is normal. The right atrium size is normal. AORTIC VALVE The aortic valve is normal in structure and function. No aortic regurgitation is present. There is no aortic valvular stenosis. MITRAL VALVE The mitral valve is normal in structure and function. There is no mitral valve stenosis. There is no mitral valve regurgitation noted. TRICUSPID VALVE The tricuspid valve is normal in structure and function. There is no tricuspid valve regurgitation noted. PULMONIC VALVE The pulmonary valve is normal in structure There is trace pulmonic valvular regurgitation. GREAT VESSELS The aortic root is normal in size. The IVC is normal in size and collapses >50% with inspiration. PERICARDIAL EFFUSION There is a trace circumferential pericardial effusion. <Conclusion> The left ventricle is normal size. There is normal left ventricular wall thickness. The systolic function is mildly impaired. Septal hypokinesis Transmitral Doppler flow pattern is Grade I-abnormal relaxation pattern.
--- NOTE | 2017-02-06 19:03 | CARD ---
APPROVED REPORT EKG Measurement Heart [id number] <Conclusion> Sinus bradycardia Otherwise normal ECG
--- NOTE | 2017-02-06 21:23 | CP.PCM.PN ---
Subjective - Date & Time of Evaluation Date of Evaluation: 02/06/17 Time of Evaluation: 20:00 - Subjective Subjective: feels little better, diarrhea 4 times today,feels nauseous. labs-WNL.stable vitals. Objective - Vital Signs/Intake and Output Vital Signs (last 24 hours): Temp Pulse Resp BP Pulse Ox 98.2 F 60 18 115/80 95 02/06/17 20:00 02/06/17 20:00 02/06/17 20:00 02/06/17 20:00 02/06/17 20:00 - Medications Medications: Current Medications Acetaminophen (Tylenol 325mg Tab) 650 mg PO Q6 PRN PRN Reason: Fever >100.4 F Last Admin: 02/03/17 12:01 Dose: 650 mg Acetaminophen (Tylenol 325mg Tab) 650 mg PO Q6 PRN PRN Reason: pain Last Admin: 02/04/17 10:22 Dose: 650 mg Acetaminophen/Butalbital/Caffeine (Fioricet) 1 tab PO Q8 PRN PRN Reason: Headache Last Admin: 02/04/17 15:06 Dose: 1 tab Al Hydrox/Mg Hydrox/Simethicone (Maalox Plus 30 Ml) 30 ml PO Q12 PRN PRN Reason: Indigestion / Heartburn Last Admin: 02/05/17 08:58 Dose: 30 ml Albuterol (Ventolin Hfa 90 Mcg/Actuation (8 G)) 2 puff IH Q4H PRN PRN Reason: Shortness of Breath Clonazepam (Klonopin) 1 mg PO HS [facility] Last Admin: 02/05/17 21:41 Dose: 1 mg Clopidogrel Bisulfate (Plavix) 75 mg PO DAILY [facility] Last Admin: 02/06/17 08:44 Dose: 75 mg Guaifenesin/Dextromethorphan (Robitussin Dm) 10 ml PO Q6 PRN PRN Reason: Cough Last Admin: 02/06/17 16:41 Dose: 10 ml Hydrochlorothiazide (Hydrodiuril) 25 mg PO DAILY [facility] Last Admin: 02/06/17 08:43 Dose: 25 mg Levofloxacin/Dextrose (Levaquin 750mg) 750 mg in 150 mls @ 100 mls/hr IVPB DAILY [facility] Last Admin: 02/06/17 08:48 Dose: 100 mls/hr Metronidazole (Flagyl 500mg/100ml Ns) 100 mls @ 100 mls/hr IVPB Q8 [facility] Last Admin: 02/06/17 16:40 Dose: 100 mls/hr Montelukast Sodium (Singulair) 10 mg PO [facility] Last Admin: 02/05/17 21:41 Dose: 10 mg Ondansetron HCl (Zofran Inj) 4 mg IVP Q6 PRN PRN Reason: Nausea/Vomiting Last Admin: 02/02/17 21:47 Dose: 4 mg Potassium Chloride (K-Dur 20 Meq Er Tab) 20 meq PO DAILY [facility] Last Admin: 02/06/17 08:42 Dose: 20 meq Sertraline HCl (Zoloft) 150 mg PO [facility] Last Admin: 02/05/17 21:41 Dose: 150 mg Trazodone HCl (Desyrel) 100 mg PO [facility] Last Admin: 02/05/17 21:41 Dose: 100 mg Valsartan (Diovan) 160 mg PO DAILY [facility] Last Admin: 02/06/17 08:42 Dose: 160 mg - Labs Labs: 02/06/17 06:20 02/06/17 06:20 - Additional Findings Additional findings: Constitutional Appears: No Acute Distress - Head Exam Head Exam: ATRAUMATIC, NORMAL INSPECTION, NORMOCEPHALIC - Eye Exam Eye Exam: EOMI, Normal appearance, PERRL. absent: Scleral icterus - ENT Exam ENT Exam: Mucous Membranes Dry, Normal Exam - Neck Exam Neck exam: Negative for: Lymphadenopathy, Thyromegaly - Respiratory Exam Respiratory Exam: Clear to Auscultation Bilateral, NORMAL BREATHING PATTERN. absent: Rhonchi, Wheezes, Respiratory Distress - Cardiovascular Exam Cardiovascular Exam: REGULAR RHYTHM, +S1, +S2. absent: Systolic Murmur - GI/Abdominal Exam GI & Abdominal Exam: Normal Bowel Sounds, Soft. absent: Distended, Hernia, Tenderness - Extremities Exam Extremities exam: Positive for: normal inspection, pedal pulses present. Negative for: pedal edema, tenderness - Back Exam Back exam: NORMAL INSPECTION. absent: tenderness - Neurological Exam Neurological exam: Alert, CN II-XII Intact, Normal Gait, Oriented x3 - Psychiatric Exam Psychiatric exam: Normal Affect, Normal Mood - Skin intact Assessment and Plan (1) Salmonellosis Status: Acute (2) Pneumonia Status: Acute (3) Chest pain Status: Resolved (4) Essential (primary) hypertension Status: Acute (5) Hypokalemia Status: Acute - Assessment and Plan (Free Text) Plan: on abx continue current care sinus cierra due to salmonells? ECHO
[2017-02-07] MEDS: metroNIDAZOLE 500mg/100ml NS 100 ML IVPB SCH ×3 (00:16→16:48)
[2017-02-07 07:48] LABS: T4 7.83 ug/dl (5.5-11.0)
[2017-02-07 08:02] LABS: THYROID STIMULATING HORMONE 1.16 mIU/ML (0.46-4.68)
[2017-02-07] MEDS: Potassium Chloride 20 mEq ER Tab PO SCH (08:38)
[2017-02-07] MEDS: levoFLOXacin 750 mg in D5W 750 MG/150 ML BAG IVPB SCH (08:39)
--- NOTE | 2017-02-07 12:31 | CP.PCM.PN ---
Subjective - Date & Time of Evaluation Date of Evaluation: 02/07/17 Time of Evaluation: 08:00 - Subjective Subjective: slow progress improving pneumonia and salmonellosis Objective - Vital Signs/Intake and Output Vital Signs (last 24 hours): Temp Pulse Resp BP Pulse Ox 98.3 F 59 L 18 109/75 98 02/07/17 12:29 02/07/17 12:29 02/07/17 12:29 02/07/17 12:29 02/07/17 12:29 - Medications Medications: Current Medications Acetaminophen (Tylenol 325mg Tab) 650 mg PO Q6 PRN PRN Reason: Fever >100.4 F Last Admin: 02/03/17 12:01 Dose: 650 mg Acetaminophen (Tylenol 325mg Tab) 650 mg PO Q6 PRN PRN Reason: pain Last Admin: 02/04/17 10:22 Dose: 650 mg Acetaminophen/Butalbital/Caffeine (Fioricet) 1 tab PO Q8 PRN PRN Reason: Headache Last Admin: 02/04/17 15:06 Dose: 1 tab Al Hydrox/Mg Hydrox/Simethicone (Maalox Plus 30 Ml) 30 ml PO Q12 PRN PRN Reason: Indigestion / Heartburn Last Admin: 02/05/17 08:58 Dose: 30 ml Albuterol (Ventolin Hfa 90 Mcg/Actuation (8 G)) 2 puff IH Q4H PRN PRN Reason: Shortness of Breath Clonazepam (Klonopin) 1 mg PO HS [facility] Last Admin: 02/06/17 21:54 Dose: 1 mg Clopidogrel Bisulfate (Plavix) 75 mg PO DAILY [facility] Last Admin: 02/07/17 08:38 Dose: 75 mg Guaifenesin/Dextromethorphan (Robitussin Dm) 10 ml PO Q6 PRN PRN Reason: Cough Last Admin: 02/06/17 16:41 Dose: 10 ml Hydrochlorothiazide (Hydrodiuril) 25 mg PO DAILY [facility] Last Admin: 02/07/17 08:38 Dose: 25 mg Levofloxacin/Dextrose (Levaquin 750mg) 750 mg in 150 mls @ 100 mls/hr IVPB DAILY [facility] Last Admin: 02/07/17 08:39 Dose: 100 mls/hr Metronidazole (Flagyl 500mg/100ml Ns) 100 mls @ 100 mls/hr IVPB Q8 [facility] Last Admin: 02/07/17 08:37 Dose: 100 mls/hr Montelukast Sodium (Singulair) 10 mg PO HS [facility] Last Admin: 02/06/17 21:53 Dose: 10 mg Ondansetron HCl (Zofran Inj) 4 mg IVP Q6 PRN PRN Reason: Nausea/Vomiting Last Admin: 02/06/17 21:54 Dose: 4 mg Potassium Chloride (K-Dur 20 Meq Er Tab) 20 meq PO DAILY [facility] Last Admin: 02/07/17 08:38 Dose: 20 meq Sertraline HCl (Zoloft) 150 mg PO HS [facility] Last Admin: 02/06/17 21:54 Dose: 150 mg Trazodone HCl (Desyrel) 100 mg PO [facility] Last Admin: 02/06/17 21:53 Dose: 100 mg Valsartan (Diovan) 160 mg PO DAILY [facility] Last Admin: 02/07/17 08:38 Dose: 160 mg - Labs Labs: 02/06/17 06:20 02/06/17 06:20 - Constitutional Appears: Non-toxic, Cachectic, Chronically Ill - Head Exam Head Exam: NORMAL INSPECTION - Eye Exam Eye Exam: PERRL. absent: Scleral icterus - ENT Exam ENT Exam: Mucous Membranes Dry, Normal External Ear Exam - Neck Exam Neck Exam: absent: Lymphadenopathy - Respiratory Exam Respiratory Exam: Decreased Breath Sounds, Clear to Ausculation Bilateral - Cardiovascular Exam Cardiovascular Exam: REGULAR RHYTHM Assessment and Plan (1) Abdominal pain Status: Acute (2) Amebic enterocolitis Status: Acute (3) Essential (primary) hypertension Status: Acute (4) Fever in adult Status: Acute (5) Hypokalemia Status: Acute (6) Pneumonia Status: Acute (7) Chest pain Status: Resolved (8) Salmonellosis Status: Acute (9) Salmonellosis Status: Acute
--- NOTE | 2017-02-07 22:15 | CP.PCM.PN ---
Subjective - Date & Time of Evaluation Date of Evaluation: 02/07/17 Time of Evaluation: 15:00 - Subjective Subjective: ECHO-septal hypokinesia, ekg- NSR,bradycardia tolerating diet Objective - Vital Signs/Intake and Output Vital Signs (last 24 hours): Temp Pulse Resp BP Pulse Ox 98.2 F 65 20 111/78 96 02/07/17 20:35 02/07/17 20:35 02/07/17 20:35 02/07/17 20:35 02/07/17 20:35 Intake and Output: 02/07/17 02/08/17 18:59 06:59 Intake Total 1050 Balance 1050 - Medications Medications: Current Medications Acetaminophen (Tylenol 325mg Tab) 650 mg PO Q6 PRN PRN Reason: Fever >100.4 F Last Admin: 02/03/17 12:01 Dose: 650 mg Acetaminophen (Tylenol 325mg Tab) 650 mg PO Q6 PRN PRN Reason: pain Last Admin: 02/04/17 10:22 Dose: 650 mg Acetaminophen/Butalbital/Caffeine (Fioricet) 1 tab PO Q8 PRN PRN Reason: Headache Last Admin: 02/04/17 15:06 Dose: 1 tab Al Hydrox/Mg Hydrox/Simethicone (Maalox Plus 30 Ml) 30 ml PO Q12 PRN PRN Reason: Indigestion / Heartburn Last Admin: 02/05/17 08:58 Dose: 30 ml Albuterol (Ventolin Hfa 90 Mcg/Actuation (8 G)) 2 puff IH Q4H PRN PRN Reason: Shortness of Breath Clonazepam (Klonopin) 1 mg PO HS [facility] Last Admin: 02/07/17 21:48 Dose: 1 mg Clopidogrel Bisulfate (Plavix) 75 mg PO DAILY [facility] Last Admin: 02/07/17 08:38 Dose: 75 mg Guaifenesin/Dextromethorphan (Robitussin Dm) 10 ml PO Q6 PRN PRN Reason: Cough Last Admin: 02/06/17 16:41 Dose: 10 ml Hydrochlorothiazide (Hydrodiuril) 25 mg PO DAILY [facility] Last Admin: 02/07/17 08:38 Dose: 25 mg Levofloxacin/Dextrose (Levaquin 750mg) 750 mg in 150 mls @ 100 mls/hr IVPB DAILY [facility] Last Admin: 02/07/17 08:39 Dose: 100 mls/hr Metronidazole (Flagyl 500mg/100ml Ns) 100 mls @ 100 mls/hr IVPB Q8 [facility] Last Admin: 02/07/17 16:48 Dose: 100 mls/hr Montelukast Sodium (Singulair) 10 mg PO HS [facility] Last Admin: 02/07/17 21:48 Dose: 10 mg Ondansetron HCl (Zofran Inj) 4 mg IVP Q6 PRN PRN Reason: Nausea/Vomiting Last Admin: 02/06/17 21:54 Dose: 4 mg Potassium Chloride (K-Dur 20 Meq Er Tab) 20 meq PO DAILY [facility] Last Admin: 02/07/17 08:38 Dose: 20 meq Sertraline HCl (Zoloft) 150 mg PO HS [facility] Last Admin: 02/07/17 21:49 Dose: 150 mg Trazodone HCl (Desyrel) 100 mg PO HS [facility] Last Admin: 02/07/17 21:49 Dose: 100 mg Valsartan (Diovan) 160 mg PO DAILY [facility] Last Admin: 02/07/17 08:38 Dose: 160 mg - Labs Labs: 02/06/17 06:20 02/06/17 06:20 - Additional Findings Additional findings: - Additional Findings Additional findings: Constitutional Appears: No Acute Distress - Head Exam Head Exam: ATRAUMATIC, NORMAL INSPECTION, NORMOCEPHALIC - Eye Exam Eye Exam: EOMI, Normal appearance, PERRL. absent: Scleral icterus - ENT Exam ENT Exam: Mucous Membranes Dry, Normal Exam - Neck Exam Neck exam: Negative for: Lymphadenopathy, Thyromegaly - Respiratory Exam Respiratory Exam: Clear to Auscultation Bilateral, NORMAL BREATHING PATTERN. absent: Rhonchi, Wheezes, Respiratory Distress - Cardiovascular Exam Cardiovascular Exam: REGULAR RHYTHM, +S1, +S2. absent: Systolic Murmur - GI/Abdominal Exam GI & Abdominal Exam: Normal Bowel Sounds, Soft. absent: Distended, Hernia, Tenderness - Extremities Exam Extremities exam: Positive for: normal inspection, pedal pulses present. Negative for: pedal edema, tenderness - Back Exam Back exam: NORMAL INSPECTION. absent: tenderness - Neurological Exam Neurological exam: Alert, CN II-XII Intact, Normal Gait, Oriented x3 - Psychiatric Exam Psychiatric exam: Normal Affect, Normal Mood - Skin intact Assessment and Plan (1) Salmonellosis Status: Acute (2) Bradycardia Status: Acute (3) Pneumonia Status: Acute (4) Enteritis Status: Acute (5) Essential (primary) hypertension Status: Acute - Assessment and Plan (Free Text) Plan: continue care diet as tolerated cardiology consult cont meds for now.
[2017-02-08] MEDS: metroNIDAZOLE 500mg/100ml NS 100 ML IVPB SCH ×3 (01:26→16:18)
--- NOTE | 2017-02-08 08:16 | CP.PCM.CON ---
History of Present Illness - History of Present Illness History of Present Illness: 47-year-old hypertensive female came to the emergency room after developing a persistent productive cough fever and diarrhea. This consultation was requested because of a persistent bradycardia. The patient indicates that she had had coronary stenting twice, once in 2003 and again in 2007. Neither of these interventions followed a myocardial infarction. She denies any history of diabetes or hypothyroidism. She is not a smoker. She does not report any symptoms of congestive cardiac failure. She denies any history of palpitations or syncope or near syncope. She reports having been told of a slow heartbeat and was investigated for possible pacemaker implant. She was eventually told she does not need it at this point. Physical examination shows a young female who is comfortable at rest. She was alert awake and coherent. Afebrile. Telemetry shows sinus rhythm at rates which vary in 50s. No long pauses were detected. Her blood pressure was 120/74 mmHg. Her jugular venous pressure was not elevated there was no edema over her lower extremities the pedal pulses were well felt there were no carotid bruits the apex was in the face first and second heart sounds are normal there was no murmur or gallop there were no rales. Occasional wheezing was audible. Her abdomen was soft liver and spleen are not palpable. Her electrocardiogram showed sinus rhythm at 51 bpm with a normal EKG pattern. Her lab data was reviewed. Her WBC count was normal. Her hemoglobin and hematocrit were essentially within normal limits. Her BUN/creatinine were normal her electrolytes were normal her TSH was normal. IMPRESSION: History of coronary stenting with stable coronary artery disease. Mild sinus bradycardia which may possibly represent sick sinus syndrome. Hypertension. The patient sees her care administrative tech on a regular basis. At this juncture no further intervention is recommended. she plans to see her care administrative tech in the next one month. Past Patient History - Past Medical History & Family History Past Medical History?: Yes - Past Social History Smoking Status: Never Smoked - CARDIAC Hx Cardiac Disorders: Yes Hx Atrial Fibrillation: Yes Hx Hypertension: Yes - PULMONARY Hx Respiratory Disorders: Yes Hx Asthma: Yes - NEUROLOGICAL Hx Neurological Disorder: No - HEENT Hx HEENT Problems: No - RENAL Hx Chronic Kidney Disease: No - ENDOCRINE/METABOLIC Hx Endocrine Disorders: No - HEMATOLOGICAL/ONCOLOGICAL Hx Blood Disorders: No Hx AIDS: No Hx Human Immunodeficiency Virus (HIV): No - INTEGUMENTARY Hx Dermatological Problems: No - MUSCULOSKELETAL/RHEUMATOLOGICAL Hx Musculoskeletal Disorders: No Hx Falls: No - GASTROINTESTINAL Hx Gastrointestinal Disorders: Yes Hx Pancreatitis: Yes - GENITOURINARY/GYNECOLOGICAL Hx Genitourinary Disorders: No - PSYCHIATRIC Hx Psychophysiologic Disorder: Yes Hx Anxiety: Yes Hx Depression: Yes Hx Schizophrenia: No Hx Substance Use: No - SURGICAL HISTORY Hx Surgeries: Yes Hx Cardiac Catheterization: Yes Hx Hysterectomy: Yes (1999) Other/Comment: TYMPANIC MEMBRANE SX. - ANESTHESIA Hx Anesthesia: Yes Hx Anesthesia Reactions: No Hx Malignant Hyperthermia: No Meds Allergies/Adverse Reactions: Allergies Allergy/AdvReac Type Severity Reaction Status Date / Time latex Allergy Mild RASH Verified 02/02/17 03:29 iodine Allergy RASH Verified 11/30/15 11:14 shrimp Allergy RASH Verified 11/30/15 11:14 - Medications Medications: Current Medications Acetaminophen (Tylenol 325mg Tab) 650 mg PO Q6 PRN PRN Reason: Fever >100.4 F Last Admin: 02/03/17 12:01 Dose: 650 mg Acetaminophen (Tylenol 325mg Tab) 650 mg PO Q6 PRN PRN Reason: pain Last Admin: 02/04/17 10:22 Dose: 650 mg Acetaminophen/Butalbital/Caffeine (Fioricet) 1 tab PO Q8 PRN PRN Reason: Headache Last Admin: 02/04/17 15:06 Dose: 1 tab Al Hydrox/Mg Hydrox/Simethicone (Maalox Plus 30 Ml) 30 ml PO Q12 PRN PRN Reason: Indigestion / Heartburn Last Admin: 02/05/17 08:58 Dose: 30 ml Albuterol (Ventolin Hfa 90 Mcg/Actuation (8 G)) 2 puff IH Q4H PRN PRN Reason: Shortness of Breath Clonazepam (Klonopin) 1 mg PO HS OUMAR Last Admin: 02/07/17 21:48 Dose: 1 mg Clopidogrel Bisulfate (Plavix) 75 mg PO DAILY [facility] Last Admin: 02/07/17 08:38 Dose: 75 mg Guaifenesin/Dextromethorphan (Robitussin Dm) 10 ml PO Q6 PRN PRN Reason: Cough Last Admin: 02/06/17 16:41 Dose: 10 ml Hydrochlorothiazide (Hydrodiuril) 25 mg PO DAILY [facility] Last Admin: 02/07/17 08:38 Dose: 25 mg Levofloxacin/Dextrose (Levaquin 750mg) 750 mg in 150 mls @ 100 mls/hr IVPB DAILY [facility] Last Admin: 02/07/17 08:39 Dose: 100 mls/hr Metronidazole (Flagyl 500mg/100ml Ns) 100 mls @ 100 mls/hr IVPB Q8 [facility] Last Admin: 02/08/17 01:26 Dose: 100 mls/hr Montelukast Sodium (Singulair) 10 mg PO [facility] Last Admin: 02/07/17 21:48 Dose: 10 mg Ondansetron HCl (Zofran Inj) 4 mg IVP Q6 PRN PRN Reason: Nausea/Vomiting Last Admin: 02/06/17 21:54 Dose: 4 mg Potassium Chloride (K-Dur 20 Meq Er Tab) 20 meq PO DAILY [facility] Last Admin: 02/07/17 08:38 Dose: 20 meq Sertraline HCl (Zoloft) 150 mg PO [facility] Last Admin: 02/07/17 21:49 Dose: 150 mg Trazodone HCl (Desyrel) 100 mg PO [facility] Last Admin: 02/07/17 21:49 Dose: 100 mg Valsartan (Diovan) 160 mg PO DAILY [facility] Last Admin: 02/07/17 08:38 Dose: 160 mg Results - Vital Signs Recent Vital Signs: Last Vital Signs Temp 98.3 F 02/08/17 04:57 Pulse 69 02/08/17 04:57 Resp 18 02/08/17 04:57 BP 120/79 02/08/17 04:57 Pulse Ox 98 02/08/17 04:57 - Labs Result Diagrams: 02/06/17 06:20 02/06/17 06:20 Labs: Laboratory Results - last 24 hr 02/02/17 14:46 Mycoplasma pneumon IgG 1.59 H Mycoplasma pneumon IgM 283
[2017-02-08] MEDS: Potassium Chloride 20 mEq ER Tab PO SCH (09:11)
[2017-02-08] MEDS: levoFLOXacin 750 mg in D5W 750 MG/150 ML BAG IVPB SCH (09:12)
[2017-02-08] MEDS: guaiFENesin DM 200 mg-20 mg/10 ml UD PO PRN (09:14)
[2017-02-08 16:10] VITALS: BP 116/78; PULSE 54; RESP 14; TEMP 97.5; O2SAT 99
--- NOTE | 2017-02-08 21:23 | CP.PCM.DIS ---
Provider - Provider Date of Admission: 02/02/17 14:34 Attending physician: Veena Barger MD Time Spent in preparation of Discharge (in minutes): 30 Diagnosis - Discharge Diagnosis (1) Salmonellosis Status: Acute (2) Bradycardia Status: Chronic (3) Pneumonia Status: Acute (4) Essential (primary) hypertension Status: Chronic (5) Depressed Status: Chronic Comment: continue all meds. cont levaquin for 1 week. cardiology cleared Hospital Course - Lab Results Lab Results: Micro Results 02/05/17 07:38 Sputum Gram Stain - Final 02/05/17 07:38 Sputum Sputum Culture - Final NORMAL ORAL JUNIOR 02/02/17 17:25 Stool Stool Culture - Preliminary Salmonella Group A 02/02/17 17:25 Rectum Ova and Parasite Concentrate Exam - Final Most Recent Lab Values WBC 5.9 K/uL (4.8-10.8) 02/06/17 06:20 RBC 4.28 Mil/uL (3.80-5.20) 02/06/17 06:20 Hgb 12.5 g/dL (12.0-16.0) 02/06/17 06:20 Hct 38.2 % (34.0-47.0) 02/06/17 06:20 MCV 89.1 fl (81.0-99.0) 02/06/17 06:20 MCH 29.2 pg (27.0-31.0) 02/06/17 06:20 MCHC 32.8 g/dL (33.0-37.0) L 02/06/17 06:20 RDW 13.7 % (11.5-14.5) 02/06/17 06:20 Plt Count 223 K/uL (130-400) 02/06/17 06:20 MPV 9.5 fl (7.2-11.7) 02/04/17 10:00 Neut % (Auto) 66.1 % (50.0-75.0) 02/04/17 10:00 Lymph % (Auto) 20.5 % (20.0-40.0) 02/04/17 10:00 [place] % (Auto) 10.1 % (0.0-10.0) H 02/04/17 10:00 Eos % (Auto) 2.7 % (0.0-4.0) 02/04/17 10:00 Baso % (Auto) 0.6 % (0.0-2.0) 02/04/17 10:00 Neut # 5.3 K/uL (1.8-7.0) 02/04/17 10:00 Lymph # 1.6 K/uL (1.0-4.3) 02/04/17 10:00 [place] # 0.8 K/uL (0.0-0.8) 02/04/17 10:00 Eos # 0.2 K/uL (0.0-0.7) 02/04/17 10:00 Baso # 0.1 K/uL (0.0-0.2) 02/04/17 10:00 Neutrophils % (Manual) 79 % (42-75) H 02/02/17 04:06 Band Neutrophils % 2 % (0-2) 02/02/17 04:06 Lymphocytes % (Manual) 8 % (20-50) L 02/02/17 04:06 Reactive Lymphs % 2 % (0-0) H 02/02/17 04:06 Monocytes % (Manual) 8 % (0-10) 02/02/17 04:06 Eosinophils % (Manual) 1 % (0-7) 02/02/17 04:06 Platelet Estimate Normal (NORMAL) 02/02/17 04:06 Tear Drop Cells Slight 02/02/17 04:06 [place] Cells Slight 02/02/17 04:06 pO2 38 mm/Hg (30-55) 02/02/17 04:08 VBG pH 7.30 (7.32-7.43) L 02/02/17 04:08 VBG pCO2 42 mmHg (40-60) 02/02/17 04:08 VBG HCO3 19.8 mmol/L 02/02/17 04:08 VBG Total CO2 22.0 mmol/L (22-28) 02/02/17 04:08 VBG O2 Sat (Calc) 75.0 % (40-65) H 02/02/17 04:08 VBG Base Excess -5.5 mmol/L (0.0-2.0) L 02/02/17 04:08 VBG Potassium > 20.0 mmol/L (3.6-5.2) H* 02/02/17 04:08 Sodium 127.0 mmol/L (132-148) L 02/02/17 04:08 Chloride 103.0 mmol/L (98-107) 02/02/17 04:08 Glucose 116 mg/dL (65-105) H 02/02/17 04:08 Lactate 1.9 mmol/L (0.7-2.1) 02/02/17 04:08 FiO2 21.0 % 02/02/17 04:08 Crit Value Called To karena York md 02/02/17 04:08 Crit Value Called By Tj sanchez 02/02/17 04:08 Crit Value Read Back Y 02/02/17 04:08 Blood Gas Notified Time 416 02/02/17 04:08 Sodium 138 mmol/l (132-148) 02/06/17 06:20 Potassium 4.2 MMOL/L (3.6-5.0) 02/06/17 06:20 Chloride 107 mmol/L (98-107) 02/06/17 06:20 Carbon Dioxide 22 mmol/L (22-30) 02/06/17 06:20 Anion Gap 12 (10-20) 02/06/17 06:20 BUN 7 mg/dl (7-17) 02/06/17 06:20 Creatinine 0.8 mg/dL (0.7-1.2) 02/06/17 06:20 Est GFR ( Amer) > 60 02/06/17 06:20 Est GFR (Non-Af Amer) > 60 02/06/17 06:20 Random Glucose 105 mg/dL (65-105) 02/06/17 06:20 Lactic Acid 1.0 MMOL/L (0.7-2.1) 02/02/17 14:46 Calcium 8.9 mg/dL (8.4-10.2) 02/06/17 06:20 Total Bilirubin 0.5 mg/dl (0.2-1.3) 02/05/17 06:01 AST 24 U/L (14-36) 02/05/17 06:01 ALT 39 U/L (9-52) 02/05/17 06:01 Alkaline Phosphatase 73 U/L (38-126) 02/05/17 06:01 Troponin I < 0.0120 ng/mL (0.00-0.120) 02/04/17 05:30 Total Protein 6.9 G/DL (6.3-8.2) 02/05/17 06:01 Albumin 3.6 g/dL (3.5-5.0) 02/05/17 06:01 Globulin 3.3 gm/dL (2.2-3.9) 02/05/17 06:01 Albumin/Globulin Ratio 1.1 (1.0-2.1) 02/05/17 06:01 Lipase 147 U/L (23-300) 02/02/17 04:06 Thyroxine (T4) 7.83 ug/dl (5.5-11.0) 02/07/17 06:55 Total T3 0.993 nmol/L (1.49-2.60) L 02/07/17 06:55 TSH 3rd Generation 1.16 mIU/ML (0.46-4.68) 02/07/17 06:55 Serum HCG, Qual Negative (NEGATIVE) 02/02/17 04:06 Venous Blood Potassium > 20.0 mmol/L (3.6-5.2) H* 02/02/17 04:08 Urine Color Blue (YELLOW) 02/02/17 04:44 Urine Clarity Clear (Clear) 02/02/17 04:44 Urine pH 6.0 (5.0-8.0) 02/02/17 04:44 Ur Specific [place] 1.011 (1.003-1.030) 02/02/17 04:44 Urine Protein Negative mg/dL (NEGATIVE) 02/02/17 04:44 Urine Glucose (UA) Neg mg/dL (Normal) 02/02/17 04:44 Urine Ketones Trace mg/dL (NEGATIVE) 02/02/17 04:44 Urine Blood Negative (NEGATIVE) 02/02/17 04:44 Urine Nitrate Negative (NEGATIVE) 02/02/17 04:44 Urine Bilirubin Negative (NEGATIVE) 02/02/17 04:44 Urine Urobilinogen 2.0 mg/dL (0.2-1.0) H 02/02/17 04:44 Ur Leukocyte Esterase Neg [place]/uL (Negative) 02/02/17 04:44 Urine RBC (Auto) 1 /hpf (0-3) 02/02/17 04:44 Urine Microscopic WBC 1 /hpf (0-5) 02/02/17 04:44 Ur Squamous Epith Cells 2 /hpf (0-5) 02/02/17 04:44 Urine Bacteria Rare (<OCC) 02/02/17 04:44 C. difficile Ag & Toxin Negative (NEGATIVE) 02/02/17 17:25 Hepatitis A IgM Ab Negative (NEGATIVE) 02/02/17 15:34 Hep Bs Antigen Negative (NEGATIVE) 02/02/17 15:34 Hep B Core IgM Ab Negative (NEGATIVE) 02/02/17 15:34 Hepatitis C Antibody Negative (NEGATIVE) 02/02/17 15:34 HIV 1&2 Antibody Screen Negative (NEGATIVE) 02/02/17 15:34 Influenza Typ A,B (EIA) Negative for flu a/b (NEGATIVE) 02/02/17 18:16 Mycoplasma pneumon IgG 1.59 (<=0.90) H 02/02/17 14:46 Mycoplasma pneumon IgM 283 U/mL (<770) 02/02/17 14:46 Grp A Beta Strep Ag Negative (NEGATIVE) 02/02/17 04:06 Discharge Exam - Head Exam Head Exam: NORMAL INSPECTION - Additional Findings Additional findings: Constitutional Appears: not in Acute Distress - Head Exam Head Exam: ATRAUMATIC, NORMAL INSPECTION - Eye Exam Eye Exam: EOMI, Normal appearance, PERRL - ENT Exam ENT Exam: Mucous Membranes Dry - Neck Exam Neck exam: Positive for: Normal Inspection. Negative for: Lymphadenopathy - Respiratory Exam Respiratory Exam: Clear to Auscultation Bilateral, NORMAL BREATHING PATTERN. absent: Wheezes - Cardiovascular Exam Cardiovascular Exam: REGULAR RHYTHM, +S1, +S2. absent: Systolic Murmur - GI/Abdominal Exam GI & Abdominal Exam: Hypoactive Bowel Sounds, Soft. absent: Tenderness - Extremities Exam Extremities exam: Positive for: normal inspection, pedal pulses present. Negative for: pedal edema - Back Exam Back exam: absent: paraspinal tenderness - Neurological Exam Neurological exam: Alert, CN II-XII Intact, Oriented x3 - Psychiatric Exam Psychiatric exam: Normal Affect, Normal Mood - Skin Skin Exam: Intact Discharge Plan - Discharge Medications Prescriptions: metroNIDAZOLE 500mg/100ml NS [Flagyl 500MG/100ML NS] 500 mg IVPB Q8 #6 bag levoFLOXacin 750 mg in D5W [Levaquin 750MG] 150 ml IV DAILY #7 enrique - Follow Up Plan Condition: FAIR Disposition: REHAB FACILITY/REHAB UNIT Additional Instructions: patient cleared for discharge to [facility] by , and as per cont. levaquin 750 mg iv for 7 more day, flagyl monitor cbc, bmp cont. PT/OT Referrals: Veena Barger MD [Medical Doctor] -
== END 2017-02-08 17:15 | DRG 551 ==
LOC: H.ER 03:12 → H.EROBSV 04:40 → OBSVTOIN 11:53 → INTOOBSV 11:53 → H.ERHOLD 11:53 → H.TEL 13:31 → OBSVTOIN 14:34 → H.TEL 02-08 03:21
PROVIDERS: ADMIT Internal Medicine; ATTEND Internal Medicine
DX: A02.0 Salmonella enteritis (principal); J18.9 Pneumonia, unspecified organism; E87.6 Hypokalemia; I10 Essential (primary) hypertension; I25.10 Atherosclerotic heart disease of native coronary artery without angina pectoris; Z95.5 Presence of coronary angioplasty implant and graft; Z91.041 Radiographic dye allergy status; Z91.040 Latex allergy status; Z91.013 Allergy to seafood; F41.9 Anxiety disorder, unspecified; I48.91 Unspecified atrial fibrillation; F32.9 Major depressive disorder, single episode, unspecified; K21.9 Gastro-esophageal reflux disease without esophagitis; R00.1 Bradycardia, unspecified

== ENCOUNTER 2017-05-09 15:25 | Emergency (ER) | payer OTHER ==
[2017-05-09 15:25] VITALS: BMI 25.8
[2017-05-09 15:32] VITALS: RESP 16
--- NOTE | 2017-05-09 16:31 | ED PDOC ---
HPI: Abdomen Time Seen by Provider: 05/09/17 15:55 Chief Complaint (Nursing): GI Problem Chief Complaint (Provider): Nausea and vomiting History Per: Patient Additional Complaint(s): 47 yo female, PMH of anxiety, A.fib, HTN, Depression, Pancreatitis, presents to ED for evaluation of dizziness and vomiting, sudden onset while shopping in a store. Symptoms worse with movement Past Medical History Reviewed: Nursing Documentation, Vital Signs Vital Signs: Last Vital Signs Temp 98.0 F 05/09/17 18:51 Pulse 66 05/09/17 18:51 Resp 16 05/09/17 18:51 BP 138/81 05/09/17 18:51 Pulse Ox 99 05/09/17 18:51 - Medical History PMH: Anxiety, Asthma, Atrial Fibrillation, Depression, HTN, Pancreatitis Denies: HIV, Chronic Kidney Disease, Schizophrenia - Family History Family History: States: Unknown Family Hx - Living Arrangements Living Arrangements: With Family - Social History Current smoker - smoking cessation education provided: No Alcohol: None Drugs: Denies - Home Medications Home Medications: Ambulatory Orders Medication Instructions Recorded Albuterol HFA [Ventolin HFA 90 2 puff IH Q4H 02/02/17 mcg/actuation (8 g)] Clopidogrel [Plavix] 75 mg PO DAILY 02/02/17 Levocetirizine Dihydrochloride 5 mg PO HS 02/02/17 [Xyzal] Montelukast [Singulair] 10 mg PO HS 02/02/17 Omeprazole 20 mg PO DAILY 02/02/17 Ranitidine HCl [Zantac] 150 mg PO DAILY 02/02/17 Sertraline [Zoloft] 150 mg PO HS 02/02/17 Simvastatin [Zocor] 20 mg PO HS 02/02/17 clonazePAM [Klonopin] 1 mg PO HS 02/02/17 traZODone [Desyrel] 100 mg PO HS 02/02/17 Acetaminophen [Tylenol 325mg tab] 650 mg PO Q6 PRN tab 02/08/17 Acetaminophen/Butalbital/Caf 1 tab PO Q8 PRN tab 02/08/17 [Fioricet] Aluminum Hydroxide/Magnesium 30 ml PO Q12 PRN 02/08/17 [Maalox Plus 30 ml] Potassium Chloride [K-Dur 20 mEq 20 meq PO DAILY tab 02/08/17 ER Tab] Valsartan [Diovan] 160 mg PO DAILY tab 02/08/17 guaiFENesin/Dextromethorphan 10 ml PO Q6 PRN 02/08/17 [Robitussin DM] hydroCHLOROthiazide [Hydrodiuril] 25 mg PO DAILY tab 02/08/17 levoFLOXacin 750 mg in D5W 150 ml IV DAILY #7 enrique 02/08/17 [Levaquin 750MG] metroNIDAZOLE 500mg/100ml NS 500 mg IVPB Q8 #6 bag 02/08/17 [Flagyl 500MG/100ML NS] Meclizine [Meclizine*] 25 mg PO Q6 #30 tab 05/09/17 Methylprednisolone [Medrol Dose 4 mg PO DAILY #21 mg 05/09/17 Pack (21 tabs)] - Allergies Allergies/Adverse Reactions: Allergies Allergy/AdvReac Type Severity Reaction Status Date / Time latex Allergy Mild RASH Verified 05/09/17 15:30 iodine Allergy RASH Verified 05/09/17 15:30 shrimp Allergy RASH Verified 05/09/17 15:30 Review of Systems ROS Statement: Except As Marked, All Systems Reviewed And Found Negative Gastrointestinal: Positive for: Nausea, Vomiting Neurological: Positive for: Dizziness Physical Exam - Reviewed Nursing Documentation Reviewed: Yes Vital Signs Reviewed: Yes - Physical Exam Appears: Positive for: Well, Non-toxic, No Acute Distress Head Exam: Positive for: ATRAUMATIC, NORMAL INSPECTION, NORMOCEPHALIC Skin: Positive for: Normal Color, Warm, DRY Eye Exam: Positive for: EOMI, Normal appearance, PERRL ENT: Positive for: Normal ENT Inspection Neck: Positive for: Normal, Painless ROM Cardiovascular/Chest: Positive for: Regular Rate, Rhythm Respiratory: Positive for: CNT, Normal Breath Sounds Gastrointestinal/Abdominal: Positive for: Normal Exam, Bowel Sounds, Soft Back: Positive for: Normal Inspection Extremity: Positive for: Normal ROM Neurologic/Psych: Positive for: Alert, Oriented - Laboratory Results Result Diagrams: 05/09/17 17:48 05/09/17 17:48 - ECG O2 Sat by Pulse Oximetry: 100 Medical Decision Making Medical Decision Making: EKG: SB at 51 bpm, no axis deviation, no acute St changes, as read by ED MD Medicated with Meclezine, Zofran and Solumedrol Labs resulted and reviewed with pt who demonstrated full understanding Head CT: IMPRESSION: No acute intracranial abnormality. Pt doign well on re-eval, no complaints. reports feeling improved Disposition - Clinical Impression Clinical Impression: Vertigo, Vasovagal reaction - Patient ED Disposition Is Patient to be Admitted: No - Disposition Disposition: Routine/Home Disposition Time: 18:00 Condition: STABLE Prescriptions: Meclizine [Meclizine*] 25 mg PO Q6 #30 tab Methylprednisolone [Medrol Dose Pack (21 tabs)] 4 mg PO DAILY #21 mg Instructions: Vertigo (ED), Near Syncope (ED) Forms: [facility] (Telugu) Print Language: URUGUAYAN
--- NOTE | 2017-05-09 17:16 | CT ---
PROCEDURE: CT HEAD WITHOUT CONTRAST. HISTORY: vomiting COMPARISON: 05/01/2015 TECHNIQUE: Axial computed tomography images were obtained through the head/brain without intravenous contrast. Radiation dose: Total exam DLP = 741.33 mGy-cm. This CT exam was performed using one or more of the following dose reduction techniques: Automated exposure control, adjustment of the mA and/or kV according to patient size, and/or use of iterative reconstruction technique. FINDINGS: HEMORRHAGE: No intracranial hemorrhage. BRAIN: No mass effect or edema. No atrophy or chronic microvascular ischemic changes. Aburto-white matter differentiation is preserved. There is no mass, mass effect or abnormal extra-axial fluid collection. An 8 VENTRICLES: The ventricles are normal in size, shape and configuration. CALVARIUM: The skull base and calvarium are normal. PARANASAL SINUSES: Predominantly clear. MASTOID AIR CELLS: Predominantly clear. OTHER FINDINGS: None. IMPRESSION: No acute intracranial abnormality.
[2017-05-09 17:26] LABS: URINE BILIRUBIN NEGATIVE (NEGATIVE); URINE BLOOD NEGATIVE (NEGATIVE); URINE COLOR YELLOW (YELLOW); URINE GLUCOSE (UA) NEG (Normal); URINE KETONE NEGATIVE (NEGATIVE); URINE LEUKOCYTE ESTERASE NEG Leu/uL (Negative); URINE PROTEIN 30 mg/dL (NEGATIVE); URINE UROBILINOGEN 0.2-1.0 mg/dL (0.2-1.0); WBC URINE < 1 /hpf (0-5)
[2017-05-09 17:32] LABS: RBC URINE 2 /hpf (0-3)
[2017-05-09 17:56] LABS: BASO # 0.1 K/uL (0.0-0.2); BASO % 0.8 % (0.0-2.0); EOS % 0.2 % (0.0-4.0); HEMATOCRIT 40.5 % (34.0-47.0); LYMPH # 1.9 K/uL (1.0-4.3); LYMPH % 17.5 % (20.0-40.0); MEAN CELL VOLUME 88.8 fl (81.0-99.0); MEAN CORPUSCULAR HEMOGLOBIN 29.4 pg (27.0-31.0); MEAN CORPUSCULAR HGB CONC 33.1 g/dL (33.0-37.0); MEAN PLATELET VOLUME 8.9 fl (7.2-11.7); MONO # 0.6 K/uL (0.0-0.8); MONO % 6.1 % (0.0-10.0); NEUT # 8.1 K/uL (1.8-7.0); NEUT % 75.4 % (50.0-75.0); NRBC % 0.1 % (0.0-0.0); RED CELL DISTRIBUTION WIDTH 13.9 % (11.5-14.5); WHITE BLOOD COUNT 10.7 K/uL (4.8-10.8)
[2017-05-09 18:09] LABS: ALB/GLOB RATIO 1.3 (1.0-2.1); ALKALINE PHOSPHATASE 82 U/L (38-126); ALT/SGPT 38 U/L (9-52); AMYLASE 147 U/L (30-110); AST/SGOT 25 U/L (14-36); BILIRUBIN,TOTAL 0.5 mg/dl (0.2-1.3); BLOOD UREA NITROGEN 17 mg/dl (7-17); CARBON DIOXIDE 23 mmol/L (22-30); CHLORIDE 105 mmol/L (98-107); GFR AFRICAN-AMERICAN > 60; GLUCOSE,RANDOM 86 mg/dL (65-105); LIPASE 151 U/L (23-300); SODIUM 141 mmol/l (132-148); TOTAL PROTEIN 8.1 G/DL (6.3-8.2)
[2017-05-09 18:52] VITALS: BP 138/81; PULSE 66; TEMP 98
--- NOTE | 2017-05-10 07:30 | CARD ---
APPROVED REPORT EKG Measurement Heart [id number] <Conclusion> Sinus bradycardia Cannot rule out Anterior infarct, age undetermined Abnormal ECG
[2017-05-18 21:37] VITALS: O2SAT 100
== END 2017-05-09 18:52 | disposition home or self-care (01) ==
LOC: H.ER 15:25
DX: R42 Dizziness and giddiness (principal); R55 Syncope and collapse; Z86.59 Personal history of other mental and behavioral disorders; I10 Essential (primary) hypertension; J45.909 Unspecified asthma, uncomplicated; K85.90 Acute pancreatitis without necrosis or infection, unspecified
CPT/HCPCS: 70450; 80053; 81003; 81025; 82150; 83690; 84484; 85025; 93005; 96374; 96375; 99284; J2405; J2930

== ENCOUNTER 2017-06-18 10:46 | Emergency (ER) | payer OTHER ==
[2017-06-18 10:52] VITALS: BMI 26.0
[2017-06-18] MEDS ORDERED: Sodium Chloride 0.9% 1,000 ML IV STA (12:36)
[2017-06-18 13:27] LABS: BASO # 0.1 K/uL (0.0-0.2); BASO % 0.6 % (0.0-2.0); EOS # 0.1 K/uL (0.0-0.7); EOS % 0.7 % (0.0-4.0); HEMATOCRIT 43.8 % (34.0-47.0); LYMPH # 3.2 K/uL (1.0-4.3); LYMPH % 37.1 % (20.0-40.0); MEAN CELL VOLUME 87.9 fl (81.0-99.0); MEAN CORPUSCULAR HEMOGLOBIN 29.6 pg (27.0-31.0); MEAN CORPUSCULAR HGB CONC 33.7 g/dL (33.0-37.0); MEAN PLATELET VOLUME 8.6 fl (7.2-11.7); MONO # 0.6 K/uL (0.0-0.8); MONO % 7.3 % (0.0-10.0); NEUT # 4.7 K/uL (1.8-7.0); NEUT % 54.3 % (50.0-75.0); RED CELL DISTRIBUTION WIDTH 12.9 % (11.5-14.5); WHITE BLOOD COUNT 8.6 K/uL (4.8-10.8)
--- NOTE | 2017-06-18 13:38 | ED PDOC ---
HPI: General Adult Time Seen by Provider: 06/18/17 11:46 Chief Complaint (Nursing): Dizziness/Lightheaded History Per: Patient Additional Complaint(s): Pt. states since yesterday she's had gradual onset L sided headache associated with dizziness and 3 episodes of nausea. Pt. states the vomiting she developed non-radiating epigastric pain. Further states she had the same symptoms last month and was told she had vertigo. Denies chest pain, diarrhea, fever, head injury, palpitations, hematemesis. Past Medical History Reviewed: Historical Data, Nursing Documentation, Vital Signs Vital Signs: Last Vital Signs Temp 98.1 F 06/18/17 10:53 Pulse 52 L 06/18/17 10:53 Resp 16 06/18/17 10:53 BP 145/97 H 06/18/17 10:53 Pulse Ox 99 06/18/17 13:42 - Medical History PMH: Anxiety, Asthma, Atrial Fibrillation, Depression, HTN, Pancreatitis Denies: HIV, Chronic Kidney Disease, Schizophrenia - Family History Family History: States: No Known Family Hx - Home Medications Home Medications: Ambulatory Orders Medication Instructions Recorded Albuterol HFA [Ventolin HFA 90 2 puff IH Q4H 02/02/17 mcg/actuation (8 g)] Clopidogrel [Plavix] 75 mg PO DAILY 02/02/17 Levocetirizine Dihydrochloride 5 mg PO HS 02/02/17 [Xyzal] Montelukast [Singulair] 10 mg PO HS 02/02/17 Omeprazole 20 mg PO DAILY 02/02/17 Ranitidine HCl [Zantac] 150 mg PO DAILY 02/02/17 Sertraline [Zoloft] 150 mg PO HS 02/02/17 Simvastatin [Zocor] 20 mg PO HS 02/02/17 clonazePAM [Klonopin] 1 mg PO HS 02/02/17 traZODone [Desyrel] 100 mg PO HS 02/02/17 Acetaminophen [Tylenol 325mg tab] 650 mg PO Q6 PRN tab 02/08/17 Acetaminophen/Butalbital/Caf 1 tab PO Q8 PRN tab 02/08/17 [Fioricet] Aluminum Hydroxide/Magnesium 30 ml PO Q12 PRN 02/08/17 [Maalox Plus 30 ml] Potassium Chloride [K-Dur 20 mEq 20 meq PO DAILY tab 02/08/17 ER Tab] Valsartan [Diovan] 160 mg PO DAILY tab 02/08/17 guaiFENesin/Dextromethorphan 10 ml PO Q6 PRN 02/08/17 [Robitussin DM] hydroCHLOROthiazide [Hydrodiuril] 25 mg PO DAILY tab 02/08/17 levoFLOXacin 750 mg in D5W 150 ml IV DAILY #7 enrique 02/08/17 [Levaquin 750MG] metroNIDAZOLE 500mg/100ml NS 500 mg IVPB Q8 #6 bag 02/08/17 [Flagyl 500MG/100ML NS] Meclizine [Meclizine*] 25 mg PO Q6 #30 tab 05/09/17 Methylprednisolone [Medrol Dose 4 mg PO DAILY #21 mg 05/09/17 Pack (21 tabs)] Meclizine [Meclizine*] 25 mg PO Q6 PRN #30 tab 06/18/17 Metoclopramide [Reglan] 10 mg PO Q8 PRN #15 tab 06/18/17 - Allergies Allergies/Adverse Reactions: Allergies Allergy/AdvReac Type Severity Reaction Status Date / Time latex Allergy Mild RASH Verified 05/09/17 15:30 iodine Allergy RASH Verified 05/09/17 15:30 shrimp Allergy RASH Verified 05/09/17 15:30 Review of Systems ROS Statement: Except As Marked, All Systems Reviewed And Found Negative Gastrointestinal: Positive for: Nausea, Vomiting, Abdominal Pain Neurological: Positive for: Dizziness Physical Exam - Reviewed Nursing Documentation Reviewed: Yes Vital Signs Reviewed: Yes - Physical Exam Appears: Positive for: Well, Non-toxic, No Acute Distress Head Exam: Positive for: ATRAUMATIC, NORMAL INSPECTION, NORMOCEPHALIC Skin: Positive for: Normal Color, Warm. Negative for: Rash Eye Exam: Positive for: Normal appearance, EOMI, PERRL. Negative for: Nystagmus ENT: Positive for: Normal ENT Inspection Neck: Positive for: Normal, Painless ROM Cardiovascular/Chest: Positive for: Regular Rate, Rhythm Respiratory: Positive for: CNT, Normal Breath Sounds Gastrointestinal/Abdominal: Positive for: Normal Exam, Bowel Sounds, Soft. Negative for: Tenderness Back: Positive for: Normal Inspection Extremity: Positive for: Normal ROM Neurologic/Psych: Positive for: Alert, Oriented. Negative for: Aphasia, Facial Droop - Laboratory Results Result Diagrams: 06/18/17 13:00 06/18/17 13:00 - ECG ECG: Positive for: Interpreted By Me ECG Rhythm: Positive for: Sinus Bradycardia. Negative for: ST/T Changes Rate: 56 O2 Sat by Pulse Oximetry: 99 - Progress ED Course And Treament: Labs ordered. IV NS bolus x 1, reglan 10mg IVPB, antivert 50mg PO ordered. On re-evaluation, pt. reports complete relief of dizziness. Pt. requesting to be dc'd. Disposition - Clinical Impression Clinical Impression: Vertigo - Patient ED Disposition Is Patient to be Admitted: No - Disposition Referrals: [facility] [place] [Outside] Disposition: Routine/Home Disposition Time: 15:00 Condition: IMPROVED Prescriptions: Meclizine [Meclizine*] 25 mg PO Q6 PRN #30 tab PRN Reason: Dizziness Metoclopramide [Reglan] 10 mg PO Q8 PRN #15 tab PRN Reason: Nausea/Vomiting Instructions: Vertigo (ED) Forms: [facility] [employer] (Frisian) Print Language: PORTUGUESE
[2017-06-18 13:46] LABS: ALKALINE PHOSPHATASE 77 U/L (38-126); ALT/SGPT 46 U/L (9-52); AST/SGOT 29 U/L (14-36); BILIRUBIN,TOTAL 0.6 mg/dl (0.2-1.3); BLOOD UREA NITROGEN 20 mg/dl (7-17); CARBON DIOXIDE 24 mmol/L (22-30); CHLORIDE 105 mmol/L (98-107); GFR AFRICAN-AMERICAN > 60; GLUCOSE,RANDOM 83 mg/dL (65-105); LIPASE 191 U/L (23-300); POTASSIUM 3.8 MMOL/L (3.6-5.0); SODIUM 142 mmol/l (132-148); TOTAL PROTEIN 8.4 G/DL (6.3-8.2)
[2017-06-18 13:47] LABS: ALB/GLOB RATIO 1.3 (1.0-2.1)
[2017-06-18 16:02] VITALS: BP 128/78; PULSE 78; RESP 18; TEMP 97.7; O2SAT 98
--- NOTE | 2017-06-19 10:54 | CARD ---
APPROVED REPORT EKG Measurement Heart [id number] <Conclusion> Sinus bradycardia Nonspecific T wave abnormality Abnormal ECG
== END 2017-06-18 16:01 | disposition home or self-care (01) ==
LOC: H.ER 10:46
DX: R42 Dizziness and giddiness (principal); Z86.59 Personal history of other mental and behavioral disorders; I10 Essential (primary) hypertension; J45.909 Unspecified asthma, uncomplicated; K85.90 Acute pancreatitis without necrosis or infection, unspecified; I48.91 Unspecified atrial fibrillation
CPT/HCPCS: 80053; 81025; 83690; 84484; 85025; 93005; 96374; 99284; J2765; J7040

== ENCOUNTER 2018-01-21 16:51 | Observation (INO) | payer OTHER ==
[2018-01-21 16:51] VITALS: BMI 26.0
[2018-01-21] MEDS ORDERED: Nitroglycerin 2% Ointment Foilpak UD TOP STA (17:40)
--- NOTE | 2018-01-21 17:51 | ED PDOC ---
HPI: Chest Pain Time Seen by Provider: 01/21/18 17:14 Chief Complaint (Nursing): Chest Pain Chief Complaint (Provider): Chest Pain History Per: Patient History/Exam Limitations: no limitations Onset/Duration Of Symptoms: Days (x5) Current Symptoms Are (Timing): Still Present Additional Complaint(s): 47 year old female presents to the ED complaining of chest pain which started on . Patient reports a pressure like pain to the mid sternum and paresthesia to the left jaw, left arm, left hand and face associated with palpitations, light headedness, SOB, and nausea, but no vomiting. She has recently been changing her medications due to blood pressure control and adverse reaction to initial cholesterol medication. PMD: Dr. Melinda Short Past Medical History Reviewed: Historical Data, Nursing Documentation, Vital Signs Vital Signs: Last Vital Signs Temp 97.8 F 01/22/18 12:00 Pulse 55 L 01/22/18 12:00 Resp 20 01/22/18 12:00 BP 135/84 01/22/18 12:00 Pulse Ox 100 01/22/18 12:00 - Medical History PMH: Anxiety, Asthma, Atrial Fibrillation, CAD, Depression, HTN, Hypercholesterolemia, Pancreatitis Denies: HIV, Chronic Kidney Disease, Schizophrenia - Surgical History Other surgeries: Hysterectomy - Family History Family History: States: Hypertension - Social History Current smoker - smoking cessation education provided: No Alcohol: None - Home Medications Home Medications: Ambulatory Orders Medication Instructions Recorded Clopidogrel [Plavix] 75 mg PO DAILY 02/02/17 clonazePAM [Klonopin] 1 mg PO BID 02/02/17 Meclizine [Meclizine*] 25 mg PO BID PRN 01/21/18 Montelukast [Singulair] 10 mg PO HS 01/21/18 Rosuvastatin Calcium [Crestor] 40 mg PO HS 01/21/18 Valsartan/Hydrochlorothiazide 1 tab PO DAILY 01/21/18 [Diovan Hct 160-25 mg Tablet] Valsartan/Hydrochlorothiazide 1 tab PO DAILY 01/21/18 [Valsartan-Hctz 320-25 mg Tab] amLODIPine [Norvasc] 10 mg PO DAILY 01/21/18 - Allergies Allergies/Adverse Reactions: Allergies Allergy/AdvReac Type Severity Reaction Status Date / Time latex Allergy Mild RASH Verified 01/21/18 17:00 iodine Allergy RASH Verified 01/21/18 17:00 shrimp Allergy RASH Verified 01/21/18 17:00 Review of Systems ROS Statement: Except As Marked, All Systems Reviewed And Found Negative (as per HPI) Cardiovascular: Positive for: Chest Pain, Palpitations Respiratory: Positive for: Shortness of Breath Gastrointestinal: Positive for: Nausea. Negative for: Vomiting Neurological: Positive for: Other (light headedness; paresthesia to left jaw, left face, left arm, and left hand) Physical Exam - Reviewed Nursing Documentation Reviewed: Yes Vital Signs Reviewed: Yes - Physical Exam Appears: Positive for: Non-toxic, No Acute Distress Head Exam: Positive for: ATRAUMATIC, NORMOCEPHALIC Skin: Positive for: Warm, Dry Eye Exam: Positive for: EOMI, PERRL ENT: Negative for: Pharyngeal Erythema, Tonsillar Exudate Neck: Positive for: Painless ROM, Supple Cardiovascular/Chest: Positive for: Regular Rate, Rhythm, Chest Non Tender. Negative for: Murmur Respiratory: Positive for: Normal Breath Sounds. Negative for: Wheezing, Respiratory Distress Gastrointestinal/Abdominal: Positive for: Soft. Negative for: Tenderness Back: Positive for: Normal Inspection. Negative for: Decreased ROM Extremity: Positive for: Normal ROM. Negative for: Pedal Edema Lymphatic: Negative for: Adenopathy Neurologic/Psych: Positive for: Alert. Negative for: Motor/Sensory Deficits - Laboratory Results Result Diagrams: 01/21/18 18:15 01/21/18 18:15 - ECG ECG Rhythm: Positive for: Normal ST Segment (nonspecific ST abnormalities), Sinus Rhythm (normal) Interpretation Of ECG: Similar to previous EKG from May 2017 Rate: 60 O2 Sat by Pulse Oximetry: 99 (RA) Pulse Ox Interpretation: Normal Medical Decision Making Medical Decision Making: Initial Impression: Anginal type chest pain Initial Plan: Type and screen ECG CMP Creatine phosphokinase Free T4 Magnesium Phosphorous T3 Thyroid stimulating hormone Troponin I stat Troponin I Q8H ED urine dipstick CBC D dimer Partial thromboplastin Prothrombin Chest X-ray Asprin 162mg PO Nitroglycerin 2% 0.5 ea TOP Patient will be hospitalized for full cardiac workup including serial troponin to rule out ACS. Pending ER workup. Scribe Attestation: Documented by Andrea Osorio acting as a scribe for Patricia Whalen MD. Provider Scribe Attestation: All medical record entries made by the Scribe were at my direction and personally dictated by me. I have reviewed the chart and agree that the record accurately reflects my personal performance of the history, physical exam, medical decision making, and the department course for this patient. I have also personally directed, reviewed, and agree with the discharge instructions and disposition. Disposition - Clinical Impression Clinical Impression: Chest pain Discussed With DrMaria Ines: Oliver Lowery Doctor Will See Patient In The: Hospital Counseled Patient/Family Regarding: Studies Performed, Diagnosis - Disposition Disposition Time: 17:30 Condition: FAIR - Pt Status Changed To: Hospital Disposition Of: Observation - POA Present On Arrival: None
[2018-01-21 18:25] LABS: BASO # 0.1 K/uL (0.0-0.2); BASO % 0.7 % (0.0-2.0); EOS # 0.1 K/uL (0.0-0.7); EOS % 1.5 % (0.0-4.0); HEMOGLOBIN 14.3 g/dL (12.0-16.0); LYMPH % 33.5 % (20.0-40.0); MEAN CELL VOLUME 86.8 fl (81.0-99.0); MEAN CORPUSCULAR HEMOGLOBIN 29.6 pg (27.0-31.0); MEAN CORPUSCULAR HGB CONC 34.1 g/dL (33.0-37.0); MEAN PLATELET VOLUME 8.7 fl (7.2-11.7); MONO # 0.9 K/uL (0.0-0.8); MONO % 9.9 % (0.0-10.0); NEUT # 4.9 K/uL (1.8-7.0); NEUT % 54.4 % (50.0-75.0); NRBC % 0.1 % (0.0-0.0); RBC 4.83 Mil/uL (3.80-5.20)
--- NOTE | 2018-01-21 18:27 | RAD ---
HISTORY: chest pain COMPARISON: Chest radiograph dated 02/06/2017. TECHNIQUE: Chest PA and lateral FINDINGS: LUNGS: Questionable small lingular infiltrate versus nipple shadow. PLEURA: No significant pleural effusion identified. No pneumothorax apparent. CARDIOVASCULAR: Normal. OSSEOUS STRUCTURES: Unchanged. VISUALIZED UPPER ABDOMEN: Normal. OTHER FINDINGS: None. IMPRESSION: Questionable small lingular infiltrate versus nipple shadow.
[2018-01-21 18:39] LABS: PARTIAL THROMBOPLASTIN TIME 28.3 Seconds (25.6-37.1); PROTHROMBIN TIME 11.2 Seconds (9.8-13.1)
[2018-01-21 18:46] LABS: ALBUMIN 4.5 g/dL (3.5-5.0); ALT/SGPT 44 U/L (9-52); AST/SGOT 47 U/L (14-36); BLOOD UREA NITROGEN 14 mg/dl (7-17); CALCIUM 9.7 mg/dL (8.4-10.2); GFR AFRICAN-AMERICAN > 60; GFR NON-AFRICAN AMERICAN > 60
[2018-01-21 19:15] LABS: T3 1.51 nmol/L (1.49-2.60)
[2018-01-21] MEDS ORDERED: Nitroglycerin 2% Ointment Foilpak UD TOP ONE (19:24)
--- NOTE | 2018-01-22 07:04 | CP.PCM.CON ---
History of Present Illness - History of Present Illness History of Present Illness: 47 year old female presents to the ED complaining of chest pain which started on Pain described as dull aching worse with movement of her arms no change with exertion Troponin: neg x 2 EKG: NSR PMH: Anxiety, Asthma, Atrial Fibrillation, CAD, Depression, HTN, Hypercholesterolemia, Pancreatitis Past Patient History - Past Medical History & Family History Past Medical History?: Yes - Past Social History Smoking Status: Never Smoked - CARDIAC Hx Cardiac Disorders: Yes Hx Atrial Fibrillation: Yes Hx Hypercholesterolemia: Yes Hx Hypertension: Yes - PULMONARY Hx Respiratory Disorders: Yes Hx Asthma: Yes - NEUROLOGICAL Hx Neurological Disorder: No - HEENT Hx HEENT Problems: No - RENAL Hx Chronic Kidney Disease: No - ENDOCRINE/METABOLIC Hx Endocrine Disorders: No - HEMATOLOGICAL/ONCOLOGICAL Hx Blood Disorders: No Hx AIDS: No Hx Human Immunodeficiency Virus (HIV): No - INTEGUMENTARY Hx Dermatological Problems: No - MUSCULOSKELETAL/RHEUMATOLOGICAL Hx Musculoskeletal Disorders: No Hx Falls: No - GASTROINTESTINAL Hx Gastrointestinal Disorders: Yes Hx Pancreatitis: Yes - GENITOURINARY/GYNECOLOGICAL Hx Genitourinary Disorders: No - PSYCHIATRIC Hx Psychophysiologic Disorder: Yes Hx Anxiety: Yes Hx Depression: Yes Hx Substance Use: No - SURGICAL HISTORY Hx Surgeries: Yes Hx Cardiac Catheterization: Yes Hx Hysterectomy: Yes (1999) Other/Comment: TYMPANIC MEMBRANE SX. - ANESTHESIA Hx Anesthesia: Yes Hx Anesthesia Reactions: Yes (Headache) Hx Malignant Hyperthermia: No Meds Allergies/Adverse Reactions: Allergies Allergy/AdvReac Type Severity Reaction Status Date / Time latex Allergy Mild RASH Verified 01/21/18 17:00 iodine Allergy RASH Verified 01/21/18 17:00 shrimp Allergy RASH Verified 01/21/18 17:00 - Medications Medications: Current Medications Acetaminophen (Tylenol 325mg Tab) 650 mg PO Q6 PRN PRN Reason: Pain, Mild (1-3) Last Admin: 01/22/18 05:28 Dose: 650 mg Amlodipine Besylate (Norvasc) 10 mg PO DAILY [facility] Aspirin (Aspirin Chewable) 162 mg PO DAILY [facility] Atorvastatin Calcium (Lipitor) 80 mg PO HS [facility] Last Admin: 01/22/18 01:04 Dose: 80 mg Clonazepam (Klonopin) 1 mg PO BID [facility] Last Admin: 01/22/18 01:05 Dose: 1 mg Clopidogrel Bisulfate (Plavix) 75 mg PO DAILY [facility] Enoxaparin Sodium (Lovenox) 40 mg SC DAILY O[facility]AR PRN Reason: Protocol Hydrochlorothiazide (Hydrodiuril) 25 mg PO DAILY [facility] Meclizine HCl (Antivert) 25 mg PO HS PRN PRN Reason: Dizziness Montelukast Sodium (Singulair) 10 mg PO HS [facility] Last Admin: 01/22/18 01:05 Dose: 10 mg Valsartan (Diovan) 320 mg PO DAILY [facility] Results - Vital Signs Recent Vital Signs: Last Vital Signs Temp 98.1 F 01/22/18 04:42 Pulse 84 01/22/18 04:42 Resp 18 01/22/18 04:42 BP 123/70 01/22/18 04:42 Pulse Ox 97 01/22/18 04:42 - Labs Result Diagrams: 01/21/18 18:15 01/21/18 18:15 Labs: Laboratory Results - last 24 hr 01/21/18 01/21/18 01/21/18 18:15 18:15 18:15 WBC 9.0 RBC 4.83 Hgb 14.3 Hct 42.0 MCV 86.8 MCH 29.6 MCHC 34.1 RDW 14.0 Plt Count 291 MPV 8.7 Neut % (Auto) 54.4 Lymph % (Auto) 33.5 Gulf % (Auto) 9.9 Eos % (Auto) 1.5 Baso % (Auto) 0.7 Neut # (Auto) 4.9 Lymph # (Auto) 3.0 Gulf # (Auto) 0.9 H Eos # (Auto) 0.1 Baso # (Auto) 0.1 PT 11.2 INR 1.0 APTT 28.3 D-Dimer, Quantitative 98 Sodium 139 Potassium 3.6 Chloride 104 Carbon Dioxide 21 L Anion Gap 18 BUN 14 Creatinine 0.9 Est GFR ( Amer) > 60 Est GFR (Non-Af Amer) > 60 Random Glucose 90 Calcium 9.7 Phosphorus 3.9 Magnesium 2.0 Total Bilirubin 0.9 AST 47 H D ALT 44 Alkaline Phosphatase 89 Total Creatine Kinase 118 Troponin I < 0.0120 Total Protein 8.8 H Albumin 4.5 Globulin 4.3 H Albumin/Globulin Ratio 1.0 Triglycerides Cholesterol LDL Cholesterol Direct HDL Cholesterol Free T4 Total T3 1.51 TSH 3rd Generation 0.98 Blood Type Blood Type Confirm Antibody Screen BBK History Checked 01/21/18 01/21/18 01/21/18 18:15 18:18 19:22 WBC RBC Hgb Hct MCV MCH MCHC RDW Plt Count MPV Neut % (Auto) Lymph % (Auto) Gulf % (Auto) Eos % (Auto) Baso % (Auto) Neut # (Auto) Lymph # (Auto) Gulf # (Auto) Eos # (Auto) Baso # (Auto) PT INR APTT D-Dimer, Quantitative Sodium Potassium Chloride Carbon Dioxide Anion Gap BUN Creatinine Est GFR ( Amer) Est GFR (Non-Af Amer) Random Glucose Calcium Phosphorus Magnesium Total Bilirubin AST ALT Alkaline Phosphatase Total Creatine Kinase Troponin I Total Protein Albumin Globulin Albumin/Globulin Ratio Triglycerides Cholesterol LDL Cholesterol Direct HDL Cholesterol Free T4 0.99 Total T3 TSH 3rd Generation Blood Type A POSITIVE Blood Type Confirm A POSITIVE Antibody Screen Negative BBK History Checked No verified bt 01/22/18 01/22/18 00:52 04:20 WBC RBC Hgb Hct MCV MCH MCHC RDW Plt Count MPV Neut % (Auto) Lymph % (Auto) Gulf % (Auto) Eos % (Auto) Baso % (Auto) Neut # (Auto) Lymph # (Auto) Gulf # (Auto) Eos # (Auto) Baso # (Auto) PT INR APTT D-Dimer, Quantitative Sodium Potassium Chloride Carbon Dioxide Anion Gap BUN Creatinine Est GFR ( Amer) Est GFR (Non-Af Amer) Random Glucose Calcium Phosphorus Magnesium 2.0 Total Bilirubin AST ALT Alkaline Phosphatase Total Creatine Kinase Troponin I < 0.0120 Total Protein Albumin Globulin Albumin/Globulin Ratio Triglycerides 244 H Cholesterol 193 LDL Cholesterol Direct 94 HDL Cholesterol 47 Free T4 Total T3 TSH 3rd Generation 1.35 Blood Type Blood Type Confirm Antibody Screen BBK History Checked Assessment & Plan (1) Chest pain Assessment and Plan: NOn Cardiac Chest pain Pt may be discharged Status: Acute
[2018-01-22 08:34] VITALS: RESP 20
[2018-01-22] MEDS ORDERED: Patient's Own Med (Valsartan/Hydrochlorothiazide [Valsartan-Hctz 320-25 Mg Tab] 1 TAB) PO SCH (09:00)
[2018-01-22] MEDS ORDERED: Enoxaparin 40 mg Syringe SC SCH (09:00)
--- NOTE | 2018-01-22 11:23 | CARD ---
APPROVED REPORT <Conclusion> Sinus bradycardia Otherwise normal ECG
[2018-01-22 14:25] VITALS: O2SAT 99
--- NOTE | 2018-01-22 14:54 | CARD ---
APPROVED REPORT EKG Measurement Heart [id number] RI [id number] <Conclusion> Sinus bradycardia Possible Left atrial enlargement Borderline ECG
--- NOTE | 2018-01-22 14:59 | CARD ---
APPROVED REPORT EKG Measurement Heart [id number] [place] [id number] <Conclusion> Sinus bradycardia Cannot rule out Anterior infarct, age undetermined Poor R wave progression T wave abnormality, consider inferior ischemia Abnormal ECG
--- NOTE | 2018-01-22 15:09 | CARD ---
APPROVED REPORT EKG Measurement Heart [id number] MD [id number] <Conclusion> Normal sinus rhythm Possible Left atrial enlargement Nonspecific ST and T wave abnormality Abnormal ECG
--- NOTE | 2018-01-22 15:26 | CARD ---
APPROVED REPORT EXAM: Two-dimensional and M-mode echocardiogram with Doppler and color Doppler. Other Information Quality : GoodRhythm : NSR INDICATION Chest Pain 2D DIMENSIONS IVSd1.09 (0.7-1.1cm)LVDd4.19 (3.9-5.9cm) LVOT Diameter2.42 (1.8-2.4cm)PWd1.15 (0.7-1.1cm) IVSs1.39 (0.8-1.2cm)LVDs3.00 (2.5-4.0cm) FS (%) 28.4 %PWs1.05 (0.8-1.2cm) M-Mode DIMENSIONS Left Atrium (MM)3.32 (2.5-4.0cm)IVSd0.88 (0.7-1.1cm) Aortic Root2.91 (2.2-3.7cm)LVDd4.74 (4.0-5.6cm) Aortic Cusp Exc.2.06 (1.5-2.0cm)PWd0.79 (0.7-1.1cm) IVSs1.62 cmFS (%) 53 % LVDs2.24 (2.0-3.8cm)PWs1.56 cm Mitral Valve MV E Sfjnphah61.8cm/sMV DECEL [id number] A Asdczchd15.8cm/s MV [id number]/A ratio0.8MVA (PHT)2.07cm2 TDI Lateral E' Peak V8.31cm/sMedial E' Peak V6.19cm/sE/Lateral E'4.9 E/Medial E'6.6 Pulmonary Valve PV Peak Dzpbxlet24.1cm/s LEFT VENTRICLE The left ventricle is normal size. There is mild concentric left ventricular hypertrophy. The left ventricular function is normal. The left ventricular ejection fraction is within the normal range. LVEF 65% There is normal LV segmental wall motion. The left ventricular diastolic function is normal. No left ventricle thrombus noted on this study. There is no ventricular septal defect visualized. There is no left ventricular aneurysm. There is no mass noted in the left ventricle. RIGHT VENTRICLE The right ventricle is normal size. There is normal right ventricular wall thickness. The right ventricular systolic function is normal. ATRIA The left atrium size is normal. The right atrium size is normal. The interatrial septum is intact with no evidence for an atrial septal defect. AORTIC VALVE The aortic valve is normal in structure. There is trace to mild aortic regurgitation. There is no aortic valvular stenosis. There is no aortic valvular vegetation. MITRAL VALVE The mitral valve is normal in structure. There is no evidence of mitral valve prolapse. There is no mitral valve stenosis. Mitral regurgitation is trace to mild. TRICUSPID VALVE The tricuspid valve is normal in structure. There is trace to mild tricuspid regurgitation. There is no tricuspid valve prolapse or vegetation. There is no tricuspid valve stenosis. PULMONIC VALVE The pulmonary valve is normal in structure. There is mild pulmonic valvular regurgitation. There is no pulmonic valvular stenosis. GREAT VESSELS The aortic root is normal in size. The IVC is normal in size and collapses >50% with inspiration. PERICARDIAL EFFUSION The pericardium appears normal. <Conclusion> Mitral regurgitation is trace to mild. The left ventricle is normal size. There is mild concentric left ventricular hypertrophy. The left ventricular function is normal. The left ventricular ejection fraction is within the normal range. LVEF 65% The aortic valve is normal in structure. The mitral valve is normal in structure. There is mild pulmonic valvular regurgitation.
[2018-01-22 16:31] VITALS: BP 118/80; PULSE 63; TEMP 97.6
--- NOTE | 2018-01-22 19:02 | CP.PCM.HP ---
History of Present Illness - History of Present Illness History of Present Illness: CC: Chest Pain History of Present Illness: A 47 year old female presents to the ED complaining of Intermittent, Retrosternal chest pain 12/30 which started on . Patient reports a pressure like pain to the mid sternum and paresthesia to the left jaw, left arm , left hand and face associated with palpitations, light headedness, SOB, and nausea, but no vomiting. Patient had angioplasty about 6 months back, and Cardiac stress test by her assistant to the ceo recently was negative as per the patient. She has recently been changing her medications due to blood pressure control and adverse reaction to initial cholesterol medication. Admits to have Gastritis and GERD, and denies any EGD(I have advised patient to have follow up with GI as an outpatient). Present on Admission - Present on Admission Any Indicators Present on Admission: No Review of Systems - Review of Systems All systems: reviewed and no additional remarkable complaints except - Cardiovascular Cardiovascular: As Per HPI, Chest Pain Past Patient History - Past Medical History & Family History Past Medical History?: Yes Past Family History: Reviewed and not pertinent - Past Social History Smoking Status: Never Smoked Alcohol: None Drugs: Denies - CARDIAC Hx Atrial Fibrillation: Yes Hx Hypercholesterolemia: Yes Hx Hypertension: Yes - PULMONARY Hx Asthma: Yes - NEUROLOGICAL Hx Neurological Disorder: No - HEENT Hx HEENT Problems: No - RENAL Hx Chronic Kidney Disease: No - ENDOCRINE/METABOLIC Hx Endocrine Disorders: No - HEMATOLOGICAL/ONCOLOGICAL Hx Human Immunodeficiency Virus (HIV): No - INTEGUMENTARY Hx Dermatological Problems: No - MUSCULOSKELETAL/RHEUMATOLOGICAL Hx Musculoskeletal Disorders: No Hx Falls: No - GASTROINTESTINAL Hx Pancreatitis: Yes - GENITOURINARY/GYNECOLOGICAL Hx Genitourinary Disorders: No - PSYCHIATRIC Hx Anxiety: Yes Hx Depression: Yes Hx Schizophrenia: No - SURGICAL HISTORY Hx Surgeries: Yes Hx Cardiac Catheterization: Yes Hx Hysterectomy: Yes (1999) Other/Comment: TYMPANIC MEMBRANE SX. - ANESTHESIA Hx Anesthesia: Yes Hx Anesthesia Reactions: Yes (Headache) Hx Malignant Hyperthermia: No Meds Allergies/Adverse Reactions: Allergies Allergy/AdvReac Type Severity Reaction Status Date / Time latex Allergy Mild RASH Verified 01/21/18 17:00 iodine Allergy RASH Verified 01/21/18 17:00 shrimp Allergy RASH Verified 01/21/18 17:00 Physical Exam - Constitutional Appears: Well, No Acute Distress - Head Exam Head Exam: ATRAUMATIC, NORMAL INSPECTION, NORMOCEPHALIC - Eye Exam Eye Exam: EOMI, Normal appearance, PERRL Pupil Exam: NORMAL ACCOMODATION, PERRL - ENT Exam ENT Exam: Mucous Membranes Moist, Normal Exam - Neck Exam Neck exam: Positive for: Normal Inspection - Respiratory Exam Respiratory Exam: Clear to Auscultation Bilateral, NORMAL BREATHING PATTERN - Cardiovascular Exam Cardiovascular Exam: REGULAR RHYTHM, +S1, +S2 - GI/Abdominal Exam GI & Abdominal Exam: Normal Bowel Sounds, Soft. absent: Rebound, Rigid, Tenderness - Extremities Exam Extremities exam: Positive for: full ROM, normal capillary refill, normal inspection - Back Exam Back exam: NORMAL INSPECTION. absent: CVA tenderness (L), CVA tenderness (R) - Neurological Exam Neurological exam: Alert, CN II-XII Intact, Normal Gait, Oriented x3, Reflexes Normal - Psychiatric Exam Psychiatric exam: Normal Affect, Normal Mood - Skin Skin Exam: Dry, Intact, Normal Color, Warm Results - Vital Signs Recent Vital Signs: Last Vital Signs Temp 97.6 F 01/22/18 16:30 Pulse 63 01/22/18 16:30 Resp 20 01/22/18 16:30 BP 118/80 01/22/18 16:30 Pulse Ox 99 01/22/18 16:30 - Labs Result Diagrams: 01/21/18 18:15 01/21/18 18:15 Labs: Laboratory Results - last 24 hr 01/21/18 01/21/18 01/21/18 18:15 18:15 19:22 Magnesium Troponin I Triglycerides Cholesterol LDL Cholesterol Direct HDL Cholesterol Total T3 1.51 TSH 3rd Generation 0.98 Blood Type A POSITIVE Blood Type Confirm A POSITIVE Antibody Screen Negative BBK History Checked No verified bt 01/22/18 01/22/18 01/22/18 00:52 04:20 11:30 Magnesium 2.0 Troponin I < 0.0120 < 0.0120 Triglycerides 244 H Cholesterol 193 LDL Cholesterol Direct 94 HDL Cholesterol 47 Total T3 TSH 3rd Generation 1.35 Blood Type Blood Type Confirm Antibody Screen BBK History Checked - EKG Data EKG Interpreted by: Myself EKG shows normal: Sinus rhythm - EKG Data EKG comments: Possible Left Atrial Enlargement Non-Specific ST ad T Wave Abnormality Abnormal ECG - Imaging and Cardiology Chest x-ray Status: Report reviewed by me Additional comment: chest pain COMPARISON: Chest radiograph dated 02/06/2017. TECHNIQUE: Chest PA and lateral FINDINGS: LUNGS: Questionable small lingular infiltrate versus nipple shadow. PLEURA: No significant pleural effusion identified. No pneumothorax apparent. CARDIOVASCULAR: Normal. OSSEOUS STRUCTURES: Unchanged. VISUALIZED UPPER ABDOMEN: Normal. OTHER FINDINGS: None. IMPRESSION: Questionable small lingular infiltrate versus nipple shadow. Assessment & Plan (1) Chest pain Assessment and Plan: H/O CAD S//P Angioplasty O2 Via NC ASA/Plavix/Lipitor/BB Serial Trop and EKG Echocardiogram D/w the Resin Remover and Cleared for D/c Home by the Resin Remover. Status: Acute Priority: Medium (2) Gastritis Assessment and Plan: Continue to Home Oxygen Status: Chronic Priority: Low (3) Essential (primary) hypertension Status: Chronic Priority: Low
== END 2018-01-22 16:45 | disposition home or self-care (01) ==
LOC: H.ER 16:51 → H.ERHOLD 19:17 → H.TEL 22:17
PROVIDERS: ADMIT Internal Medicine; ATTEND Internal Medicine
DX: R07.89 Other chest pain (principal); I25.119 Atherosclerotic heart disease of native coronary artery with unspecified angina pectoris; Z98.61 Coronary angioplasty status; I48.91 Unspecified atrial fibrillation; I10 Essential (primary) hypertension; E78.00 Pure hypercholesterolemia, unspecified; K21.9 Gastro-esophageal reflux disease without esophagitis; K29.70 Gastritis, unspecified, without bleeding; J45.909 Unspecified asthma, uncomplicated; F41.9 Anxiety disorder, unspecified; Z79.02 Long term (current) use of antithrombotics/antiplatelets; Z91.041 Radiographic dye allergy status; Z91.040 Latex allergy status; Z91.013 Allergy to seafood
CPT/HCPCS: 36415; 71046; 80053; 80061; 82550; 83735; 84100; 84439; 84443; 84480; 84484; 85025; 85378; 85610; 85730; 86850; 86900; 93005; 93306; 96372; 99285; G0378; J1650

== ENCOUNTER 2018-12-07 12:07 | Emergency (ER) | payer MEDICAID, MEDICARE, OTHER ==
[2018-12-07 12:08] VITALS: BMI 28.8
[2018-12-07 12:22] VITALS: PULSE 60
--- NOTE | 2018-12-07 13:02 | ED PDOC ---
HPI: Chest Pain Time Seen by Provider: 12/07/18 12:27 Chief Complaint (Nursing): Palpitations Chief Complaint (Provider): Palpitations History Per: Patient History/Exam Limitations: no limitations Onset/Duration Of Symptoms: Days (x5) Current Symptoms Are (Timing): Still Present Additional Complaint(s): 48 year old female with medical history of anxiety, HTN, and HCL, presents to the emergency department with a complaint of palpitations, on and off, for 5 days. He reports associated chest pressure, shortness of breath, and mild lightheadedness. Patient states typical heart rate is in 60s range, however, heart rate increases to 90s-low 100s range upon onset of symptoms. Additionally, she reports (-) stress test performed 6 months ago. She denies any calf tendern ess, recent immobilization, leg pain or swelling. Cardio: Dr. Melinda Short Past Medical History Reviewed: Historical Data, Nursing Documentation, Vital Signs Vital Signs: Last Vital Signs Temp 97.8 F 12/07/18 12:21 Pulse 60 12/07/18 12:21 Resp 18 12/07/18 12:21 BP 147/86 12/07/18 12:21 Pulse Ox 100 12/07/18 12:21 Primary Care Provider: FAMILY PROVIDER,NO - Medical History PMH: Anxiety, Asthma, Atrial Fibrillation, CAD, Depression, HTN, Hypercholesterolemia, Peripheral Edema Denies: Chronic Kidney Disease, Schizophrenia - Family History Family History: States: CAD, Hypertension, Other Other Family History: father with CA - Social History Current smoker - smoking cessation education provided: No Alcohol: Other (rare) Drugs: Denies - Home Medications Home Medications: Ambulatory Orders Medication Instructions Recorded Clopidogrel [Plavix] 75 mg PO DAILY 02/02/17 clonazePAM [Klonopin] 1 mg PO BID 02/02/17 Meclizine [Meclizine*] 25 mg PO BID PRN 01/21/18 Montelukast [Singulair] 10 mg PO HS 01/21/18 Rosuvastatin Calcium [Crestor] 40 mg PO HS 01/21/18 Valsartan/Hydrochlorothiazide 1 tab PO DAILY 01/21/18 [Diovan Hct 160-25 mg Tablet] amLODIPine [Norvasc] 10 mg PO DAILY 01/21/18 - Allergies Allergies/Adverse Reactions: Allergies Allergy/AdvReac Type Severity Reaction Status Date / Time aspirin Allergy Intermediate RASH Verified 12/07/18 12:22 lactose Allergy Intermediate NAUSEA Verified 12/07/18 12:22 latex Allergy Mild RASH Verified 12/07/18 12:22 iodine Allergy RASH Verified 12/07/18 12:22 shrimp Allergy RASH Verified 12/07/18 12:22 electrode patch Allergy Severe RASH Uncoded 12/07/18 12:22 Review of Systems ROS Statement: Except As Marked, All Systems Reviewed And Found Negative Cardiovascular: Positive for: Chest Pain (pressure), Palpitations, Light Headedness (mild) Respiratory: Positive for: Shortness of Breath Musculoskeletal: Negative for: Leg Pain (or calf pain/leg swelling) Physical Exam - Reviewed Nursing Documentation Reviewed: Yes Vital Signs Reviewed: Yes - Physical Exam Appears: Positive for: Well, No Acute Distress Head Exam: Positive for: ATRAUMATIC, NORMOCEPHALIC Skin: Positive for: Warm, Dry Eye Exam: Positive for: EOMI, PERRL ENT: Negative for: Pharyngeal Erythema, Tonsillar Exudate Neck: Positive for: Painless ROM, Supple Cardiovascular/Chest: Positive for: Regular Rate, Rhythm, Chest Non Tender. Negative for: Murmur Respiratory: Negative for: Wheezing, Respiratory Distress Gastrointestinal/Abdominal: Positive for: Soft. Negative for: Tenderness Back: Positive for: Normal Inspection. Negative for: Decreased ROM Extremity: Negative for: Pedal Edema, Calf Tenderness Lymphatic: Negative for: Adenopathy Neurological/Psych: Positive for: Awake, Alert. Negative for: Motor/Sensory Deficits - Laboratory Results Result Diagrams: 12/07/18 12:55 12/07/18 12:55 Urine POC: Negative - ECG O2 Sat by Pulse Oximetry: 100 (RA) Pulse Ox Interpretation: Normal Medical Decision Making Medical Decision Making: Initial Impression: palpitations Differential diagnosis includes but not limited to: electrolyte abnormality; arrhythmia; anxiety; thyroid disorder Initial Plan: * Labs including d-dimer/troponin * EKG * CXR Time: 1240 --EKG: sinus rhythm at [address] segment changes. T-wave inversion in inferior and septal leads. Time: 1243 --CXR FINDINGS: LUNGS: No active pulmonary disease. PLEURA: No significant pleural effusion identified. No pneumothorax apparent. CARDIOVASCULAR: No aortic atherosclerotic calcification present. Normal cardiac size. No pulmonary vascular congestion. OSSEOUS STRUCTURES: No significant abnormalities. VISUALIZED UPPER ABDOMEN: Normal. OTHER FINDINGS: None. IMPRESSION: No active disease. No significant interval change compared to the prior examination(s). Time: 1400 --Labs reviewed: Mild hypokalemia, otherwise no significant clinical abnormality. (-) d-dimer/trop. DW pt findings. Stable for discharge. Scribe Attestation: Documented by Mamta Garcia, acting as a scribe for Patricia Whalen MD. Provider Scribe Attestation: All medical record entries made by the Scribe were at my direction and personally dictated by me. I have reviewed the chart and agree that the record accurately reflects my personal performance of the history, physical exam, medical decision making, and the department course for this patient. I have also personally directed, reviewed, and agree with the discharge instructions and disposition. Disposition - Clinical Impression Clinical Impression: Palpitations, Hypokalemia Counseled Patient/Family Regarding: Studies Performed, Diagnosis, Need For Followup - Disposition Referrals: Melinda Short MD [Family Provider] - 12/09/18 ([facility]) Disposition: Routine/Home Disposition Time: 14:20 Condition: STABLE Instructions: Hypokalemia (DC), Palpitations (DC) Print Language: YI
[2018-12-07 13:43] LABS: BASO % 0.6 % (0.0-2.0); EOS # 0.1 K/uL (0.0-0.7); EOS % 1.1 % (0.0-4.0); HEMOGLOBIN 13.4 g/dL (12.0-16.0); LYMPH # 2.3 K/uL (1.0-4.3); LYMPH % 42.6 % (20.0-40.0); MEAN CELL VOLUME 88.1 fl (81.0-99.0); MEAN CORPUSCULAR HEMOGLOBIN 30.6 pg (27.0-31.0); MEAN CORPUSCULAR HGB CONC 34.7 g/dL (33.0-37.0); MEAN PLATELET VOLUME 8.8 fl (7.2-11.7); MONO # 0.4 K/uL (0.0-0.8); MONO % 6.7 % (0.0-10.0); NEUT # 2.7 K/uL (1.8-7.0); NRBC % 0.1 % (0.0-0.0); RBC 4.39 Mil/uL (3.80-5.20); WHITE BLOOD COUNT 5.5 K/uL (4.8-10.8)
[2018-12-07 13:56] LABS: ALB/GLOB RATIO 1.4 (1.0-2.1); ALBUMIN 4.7 g/dL (3.5-5.0); ALT/SGPT 36 U/L (9-52); AST/SGOT 33 U/L (14-36); BLOOD UREA NITROGEN 14 mg/dl (7-17); CALCIUM 9.3 mg/dL (8.4-10.2); GFR NON-AFRICAN AMERICAN > 60
--- NOTE | 2018-12-07 14:05 | RAD ---
Date of service: 12/07/2018 HISTORY: Palpitations. COMPARISON: 01/21/2018. TECHNIQUE: Chest PA and lateral views FINDINGS: LUNGS: No active pulmonary disease. PLEURA: No significant pleural effusion identified. No pneumothorax apparent. CARDIOVASCULAR: No aortic atherosclerotic calcification present. Normal cardiac size. No pulmonary vascular congestion. OSSEOUS STRUCTURES: No significant abnormalities. VISUALIZED UPPER ABDOMEN: Normal. OTHER FINDINGS: None. IMPRESSION: No active disease. No significant interval change compared to the prior examination(s).
[2018-12-07 14:07] LABS: B-TYPE NATRIURETIC PEPTIDE 29.3 pg/ml (0-900)
[2018-12-07] MEDS ORDERED: Potassium Chloride 20 mEq ER Tab PO STA (14:12)
[2018-12-07] MEDS ORDERED: Potassium Chloride 20 mEq ER Tab PO ONE (14:18)
[2018-12-07 14:43] VITALS: BP 138/78; RESP 16; TEMP 98
[2018-12-07 14:46] VITALS: O2SAT 100
--- NOTE | 2018-12-08 09:46 | CARD ---
APPROVED REPORT Date of service: 12/07/2018 EKG Measurement Heart [id number] <Conclusion> Normal sinus rhythm Cannot rule out small or absent R waves V1-V3, may be due to lead placement or possible septal infarct age undetermined. Abnormal ECG
== END 2018-12-07 15:03 | disposition home or self-care (01) ==
LOC: H.ER 12:07
DX: R00.2 Palpitations (principal); E87.6 Hypokalemia; E78.00 Pure hypercholesterolemia, unspecified; I25.10 Atherosclerotic heart disease of native coronary artery without angina pectoris; I10 Essential (primary) hypertension; R07.89 Other chest pain